=== PATIENT | female | born 1935 | race Hispanic/Latino ===

== ENCOUNTER 2017-07-27 08:14 | Outpatient (CLI) | payer MEDICARE | END 2017-07-27 08:15 | disposition home or self-care (01) | LOC: BICULT 08:14 | PROVIDERS: ATTEND Otolaryngology Plastic Surgery within the Head & Neck | DX: E04.9 Nontoxic goiter, unspecified (principal); E04.2 Nontoxic multinodular goiter | CPT/HCPCS: 76536 ==

== ENCOUNTER 2018-01-27 13:56 | Outpatient (CLI) | payer MEDICARE, OTHER ==
--- NOTE | 2018-01-27 14:48 | ULT ---
VENOUS DOPPLER ULTRASOUND OF THE RIGHT LOWER EXTREMITY: Date: 01/27/18 HISTORY: Pain and edema in the right lower extremity. TECHNIQUE: Rajput scale ultrasound with color flow and spectral Doppler imaging of the deep venous system of the r ight lower extremity performed. FINDINGS: There is good flow, compression, and augmentation noted in the right common femoral, femoral, deep fe moral, popliteal, posterior tibial, and greater saphenous veins. 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 IMPRESSION: No evidence of deep venous thrombosis in the right lower extremity. POS: OFF
--- NOTE | 2018-01-27 14:49 | RAD ---
RIGHT ANKLE 3 VIEWS: Date: 01/27/18 HISTORY: Right ankle pain and edema. FINDINGS/IMPRESSION: The ankle mortise is maintained. No acute fracture, dislocation, or bony destruction is seen. Degener ative changes are present. Vascular calcifications are noted. Calcaneal spurs are noted. POS: OFF
--- NOTE | 2018-01-27 14:56 | RAD ---
THREE VIEWS RIGHT FOOT: History: Pain and edema. FINDINGS: AP, lateral, and oblique views obtained. There are surgical changes seen in the distal aspect of the first right metatarsal. Atherosclerotic calcification is seen. There is an area of radiolucency in the distal aspect of the fifth right metatarsal. This may represe nt an acute fracture. There may also be some old traumatic changes as well as healed fracture in the mid and distal aspect of the fifth right metatarsal. IMPRESSION: Acute distal right fifth metatarsal fracture with proximal old healing changes as well. POS: [facility]
--- NOTE | 2018-01-27 14:58 | RAD ---
RIGHT TIBIA AND FIBULAR FRONTAL AND LATERAL IMAGIN01/27/2018 HISTORY: Pain and edema. COMPARISON: None. FINDINGS: There is an incompletely imaged total knee arthroplasty on the right. There is atherosclerotic calcification posterior to the tibia on the lateral view. There is severe d egenerative change involving the imaged mid foot with prominent joint space narrowing, subchondral sc lerosis, and dorsal osteophyte formation at the talonavicular joint. There is enthesophyte formation at the insertion of the Achilles tendon and the origin of the plantar aponeurosis. No acute fracture or evidence of dislocation is seen. There is a sclerotic lesion within the medullary space of the mid shaft, right tibia, measuring 5-6 c m in craniocaudal dimension. The calcification of this lesion suggests chondroid matrix, on the basi s of a chondroid lesion. If there is pain referable to this region, follow-up MRI is advised. IMPRESSION: Nonspecific chondroid lesion is suspected within the mid shaft of the right tibia. If there are symp toms referable to this region, MRI advised, as low grade chondrosarcoma cannot be excluded. Addition al degenerative changes as detailed above. POS: LISA
== END 2018-01-27 13:57 | disposition home or self-care (01) ==
LOC: ULT 13:56
PROVIDERS: ATTEND Internal Medicine
DX: R60.9 Edema, unspecified (principal); M19.071 Primary osteoarthritis, right ankle and foot; S92.351A Displaced fracture of fifth metatarsal bone, right foot, initial encounter for closed fracture; Z87.81 Personal history of (healed) traumatic fracture; M77.31 Calcaneal spur, right foot; I70.90 Unspecified atherosclerosis

== ENCOUNTER 2018-02-16 11:00 | Inpatient (IN) | payer MEDICARE ==
[2018-02-16 11:58] VITALS: BMI 43.2
[2018-02-17] MEDS ORDERED: CeleCOXIB 100 MG CAP ONE (08:27)
[2018-02-17] MEDS ORDERED: Famotidine/PF 20 mg/2ml Vial ONE (08:27)
[2018-02-17] MEDS ORDERED: Gabapentin 300 MG CAP ONE (08:28)
[2018-02-17 08:58] LABS: INR-International Normal Ratio 1.1; PTT 32.1 SEC (22.9-36.1); Prothrombin Time 13.9 SEC (12.0-14.7)
[2018-02-17] MEDS ORDERED: Midazolam HCl 2 mg/2 ml Vial ONE (09:36)
[2018-02-17] MEDS ORDERED: Lidocaine 1% w/Epinephrine 1:100K 30 ML VIAL ONE (09:38)
[2018-02-17] MEDS ORDERED: CEFAZOLIN/Water 2 GM/20 ML SYRINGE ONE (09:53)
[2018-02-17] MEDS ORDERED: Fentanyl 100 MCG/2 ML VIAL ONE (10:05)
[2018-02-17] MEDS ORDERED: Simethicone Chewable 80 MG TAB PO PRN (11:42)
[2018-02-17] MEDS ORDERED: Acetaminophen/Codeine 30-300mg Tablet PO PRN ×2 (11:42)
[2018-02-17] MEDS ORDERED: Zolpidem Tartrate 5 MG TAB PO PRN (11:42)
[2018-02-17] MEDS ORDERED: Acetaminophen 325 MG TAB PO PRN (11:42)
[2018-02-17] MEDS ORDERED: diphenhydrAMINE 25 MG CAP PO PRN (11:42)
[2018-02-17] MEDS ORDERED: Bisacodyl 10 MG SUPP PR PRN (11:42)
[2018-02-17] MEDS ORDERED: Ondansetron HCl/PF 4 MG/2 ML Vial IVP PRN ×2 (11:42→11:50)
[2018-02-17] MEDS ORDERED: Promethazine HCl 25 MG/ML VIAL IM PRN (11:50)
[2018-02-17] MEDS ORDERED: Promethazine HCl 25 MG/ML VIAL SLOW IVP PRN (11:50)
[2018-02-17] MEDS ORDERED: Ketorolac Tromethamine 30 MG/ML VIAL IVP SCH (12:00)
[2018-02-17] MEDS ORDERED: Promethazine HCl 25 MG/ML VIAL ONE (12:01)
[2018-02-17] MEDS: Sodium Chloride 0.9% 1,000 ML IV SCH (13:40)
--- NOTE | 2018-02-17 15:20 | OP ---
DATE OF OPERATION: 02/17/2018 PREOPERATIVE DIAGNOSES: 1. Complete uterovaginal prolapse. 2. Rectocele. POSTOPERATIVE DIAGNOSES: 1. Complete uterovaginal prolapse. 2. Rectocele. PROCEDURE: Left LeFort colpocleisis and perineorrhaphy. ANESTHESIA: General endotracheal. ATTENDING SURGEON: Verito Gonzalez M.D. CROP PEST CONTROL SPECIALIST: Bennie Nguyen M.D. ESTIMATED BLOOD LOSS: 75 mL. INTRAVENOUS FLUIDS: One liter crystalloid. URINE OUTPUT: 150 mL of clear urine. COMPLICATIONS: None. PATHOLOGY: None. DRAINS: Wise catheter. FINDINGS: Complete procidentia on exam, cervix is slightly ulcerated no evidence of infection, very superficial. No tissue return on EMB attempt and excellent hemostasis. DESCRIPTION OF PROCEDURE: Patient was taken to the operating room where general anesthesia was obtai abi without difficulty. The patient was prepped and draped in sterile fashion in dorsal lithotomy po sition. The cervix was protruding out of the vagina was grasped with Hosea clamps. An EMB was attem pted with Pipelle; however, this did not return to yield any tissue after several passes, therefore, the Pipelle was discarded. Wise catheter was placed in the bladder. The vaginal mucosa was marked out where the incisions would be on the anterior and posterior surfaces. A track was made bilaterall y for the tunneling in the lateral vagina. The marked out rectangular drawings on the vaginal mucosa was then infiltrated with 1% lidocaine with epinephrine on the anterior and posterior surface. The posterior surface was incised with the Bovie on the previously marked areas and Allis clamps were soha lolis on the lateral edges of the vaginal skin. This was then dissected off of the rectovaginal fascia with Metzenbaums as well as a fluffed out Ray-Joyce. The posterior surface was then packed with a Ray -Joyce and the anterior surface was incised on the previously marked areas and the vaginal mucosa was d issected off of the pubocervical fascia with the Metzenbaums and a fluffed out Ray-Joyce and hemostasis was achieved with the Bovie, 2-0 Vicryl were used to create a tunnel on the lateral mucosal strips u sing a horizontal mattress technique bilaterally. The cervix was also tunneled using horizontal marv ress sutures of 2-0 Vicryl. A 2-0 barbed Stratafix suture was used to approximate the anterior and p osterior surfaces of the fascia and starting with most proximal to the cervix and running it down to the distal vaginal edge. Once this was completed, the vaginal mucosal incision was sewn with a 2-0 V icryl in a running locking fashion with excellent hemostasis noted. At that time, the posterior four chette was grasped with two Allises at 4 and 7 o'clock. The area was infiltrated with 1% lidocaine w ith epinephrine. A isabell shaped incision was made over the vaginal mucosa for the perineorrhaphy a nd the Allis clamps were placed on the vaginal mucosa and the mucosa was dissected off of the underly ing supportive tissue. The introitus was then plicated in the midline with U stitches of 2-0 Vicryl and the vaginal mucosal incision was closed with 2-0 Vicryl in a [id number] fashion with excelle nt reapproximation and hemostasis. Irrigation was performed of the vagina and a small packing was pl aced and the vaginal pouch moist Kerlix. The patient tolerated procedure well. Sponge and nee dle counts were correct x2. The patient was taken to recovery room in stable condition. Patient rec eived Ancef 2 grams prior to the procedure.
[2018-02-17] MEDS: Ketorolac Tromethamine 30 MG/ML VIAL IVP SCH (20:44)
[2018-02-17] MEDS: Allopurinol 100 MG TAB PO SCH (20:45)
[2018-02-17] MEDS: Hydroxychloroquine Sulfate 200 MG TAB PO SCH (20:57)
[2018-02-17] MEDS ORDERED: Atenolol 50 MG TAB PO SCH (21:00)
[2018-02-18] MEDS: Ketorolac Tromethamine 30 MG/ML VIAL IVP SCH ×2 (01:50→08:51)
[2018-02-18] MEDS: Sodium Chloride 0.9% 1,000 ML IV SCH (01:50)
[2018-02-18] MEDS ORDERED: Levothyroxine Sodium 25 MCG TAB PO SCH (06:00)
[2018-02-18] MEDS: Apixaban 2.5 MG TAB PO SCH ×2 (08:52)
[2018-02-18] MEDS: Allopurinol 100 MG TAB PO SCH (08:53)
[2018-02-18] MEDS: Hydroxychloroquine Sulfate 200 MG TAB PO SCH (08:53)
[2018-02-18] MEDS ORDERED: Ibuprofen 600 MG TAB PO SCH (09:15)
[2018-02-18] MEDS: Ibuprofen 200 MG TAB PO SCH ×2 (10:02→16:22)
[2018-02-18 10:08] LABS: Hemoglobin 10.1 g/dL (12.0-16.0)
--- NOTE | 2018-02-18 14:06 | PRG ---
DATE OF SERVICE: 02/18/2018 TIME OF VISIT: Approximately 0900. SUBJECTIVE: The patient feels well. She has no pain currently. She has not ambulated or voided at this point and she has eaten breakfast and tolerated that well. She denies any nausea, vomiting. OBJECTIVE: VITAL SIGNS: Blood pressure 137/74, pulse is 56, temperature 97.7, respirations 20, pulse ox is 94%. GENERAL: No acute distress, alert and oriented x3. HEART: Regular rate and rhythm. LUNGS: Clear to auscultation bilaterally. ABDOMEN: Soft, nontender, nondistended. EXTREMITIES: No edema, cyanosis or clubbing. LABORATORY DATA: Hemoglobin is 10.1, hematocrit 29.4, glucose is 114 this morning. ASSESSMENT AND PLAN: This is an 82-year-old status post LeForte colpocleisis and perineorrhaphy post op day #1. Vital signs are stable and the patient is afebrile. She is meeting appropriate postopera tive milestones. She throughout the initial part of the day was able to void 400 mL and she was cath ed for a post-void residual of 300 mL. At this point her discharge is pending her next void and I wi ll perform a postvoid residual on that one to see if she is consistently emptying her bladder adequat elan. She will be continued on oral ibuprofen, Tylenol, as well as p.r.n. Tylenol #3 on discharge. S he was given instructions on lifting restrictions and expectations of light or vaginal spotting. She will follow up with me in 2 weeks postoperative time. She has been restarted on Eliquis for history of pulmonary embolism and her medications are continued.
[2018-02-18 16:25] VITALS: BP 122/58; TEMP 98.2
== END 2018-02-18 18:55 | disposition home or self-care (01) | DRG 748 ==
LOC: SURG A 02-17 08:05 → 3SE 02-17 12:53
PROVIDERS: ADMIT Student in an Organized Health Care Education/Training Program; ATTEND Student in an Organized Health Care Education/Training Program
PROC: 0ULG7ZZ Occlusion of Vagina, Via Natural or Artificial Opening (ICD-10-PCS; principal; 2018-02-17)
PROC: 0WQNXZZ Repair Female Perineum, External Approach (ICD-10-PCS; 2018-02-17)
DX: N81.3 Complete uterovaginal prolapse (principal); Z01.818 Encounter for other preprocedural examination
CPT/HCPCS: 36415; 36416; 80048; 85027; 85610; 85730; 86850; 86900; 86901; 93005; 93010; A4216; J1885; J2001; J2250; J2550; J3010; S0028

== ENCOUNTER 2018-02-16 11:34 | Outpatient (CLI) | payer MEDICARE ==
[2018-02-16 13:18] LABS: Hemoglobin 10.9 g/dL (12.0-16.0); Mean Corpuscular HGB CONC 34.1 g/dL (32.0-36.0); Mean Corpuscular Volume 93.9 fL (78.0-98.0); Mean Platelet Volume 8.4 fL (7.4-10.4); Platelet Count 122 thou/uL (130-400); RBC Distribution Width 15.4 % (11.5-14.5); Red Blood Cell (RBC) Count 3.41 mill/uL (4.20-5.40)
[2018-02-16 13:23] LABS: INR-International Normal Ratio 1.2; Prothrombin Time 14.9 SEC (12.0-14.7)
[2018-02-16 13:39] LABS: Anion Gap 11 mmol/L (10-20); BUN (Urea Nitrogen) 32 mg/dL (9.8-20.1); Calc. Creatinine Clearance 0 mL/min (70-130); Calcium 9.3 mg/dL (7.8-10.44); Carbon Dioxide 26 mmol/L (23-31); Chloride 108 mmol/L (98-107); Estimated GFR-MDRD 61; Glucose 86 mg/dL (83-110); Potassium 4.1 mmol/L (3.5-5.1); Sodium 141 mmol/L (136-145)
--- NOTE | 2018-02-18 16:44 | EKG ---
Test Reason : Blood Pressure : / mmHG Vent. Rate : 064 BPM Atrial Rate : 064 BPM P-R Int : 196 ms QRS Dur : 100 ms QT Int : 434 ms P-R-T Axes : 052 052 041 degrees QTc Int : 447 ms Normal sinus rhythm Normal ECG Confirmed by LEILANI EL ([id number]) on 02/18/2018 4:44:36 PM Referred By: MARIZA Confirmed By:LEILANI EL
== END 2018-02-16 11:35 | disposition home or self-care (01) ==
LOC: LABBT 11:34
PROVIDERS: ATTEND Student in an Organized Health Care Education/Training Program
DX: Z01.818 Encounter for other preprocedural examination (principal); N81.4 Uterovaginal prolapse, unspecified
CPT/HCPCS: 80048; 85027; 85610; 85730; 86850; 86900; 86901; 93005; 93010

== ENCOUNTER 2018-04-21 14:53 | Outpatient (CLI) | payer MEDICARE | END 2018-04-21 14:54 | disposition home or self-care (01) | LOC: BICMAMMO 14:53 | PROVIDERS: ATTEND Internal Medicine | DX: Z12.31 Encounter for screening mammogram for malignant neoplasm of breast (principal); R92.1 Mammographic calcification found on diagnostic imaging of breast | CPT/HCPCS: 77063; 77067 ==

== ENCOUNTER 2018-07-26 13:24 | Emergency (ER) | payer MEDICARE ==
--- NOTE | 2018-07-26 15:11 | ULT ---
LEFT LOWER EXTREMITY VENOUS DUPLEX ULTRASOUND INCLUDING COLOR AND SPECTRAL DOPPLER IMAGING: Date: 07/26/18 HISTORY: Left lower leg and ankle pain and edema. TECHNIQUE: Exam performed from groin to ankle including visualized greater saphenous, common femoral, superficia l femoral, profunda femoral, popliteal, trifurcation, and posterior tibial vein regions. FINDINGS: There is some fairly extensive diffuse edema. Several minimally enlarged inguinal lymph nodes are not ed. There is phasic flow at all levels with normal compressibility and normal augmentation. No intralumin al thrombus. IMPRESSION: Somewhat limited study. No evidence for deep venous thrombosis. Right leg scattered subcutaneous melissa a. Some borderline to minimally enlarged left inguinal lymph nodes. POS: [facility]
[2018-07-26 17:16] LABS: #Basophils 0.1 thou/uL (0.0-0.2); #Eosinphils 0.2 thou/uL (0.0-0.7); #Lymphocytes 1.4 thou/uL (1.20-3.40); #Monocytes 0.5 thou/uL (0.11-0.59); %Basophils 0.9 % (0.0-1.0); %Eosinophils 3.4 % (0.0-10.0); %Lymphocytes 22.6 % (21.0-51.0); %Monocytes 8.6 % (0.0-10.0); %Neutrophils 64.5 % (42.0-75.0); Hemoglobin 8.8 g/dL (12.0-16.0); Mean Corpuscular HGB CONC 32.2 g/dL (32.0-36.0); Mean Corpuscular Hemoglobin 26.3 pg (27.0-31.0); Mean Corpuscular Volume 81.5 fL (78.0-98.0); Mean Platelet Volume 9.4 fL (7.4-10.4); Platelet Count 142 thou/uL (130-400); RBC Distribution Width 15.9 % (11.5-14.5); Red Blood Cell (RBC) Count 3.36 mill/uL (4.20-5.40); White Blood Cell (WBC) Count 6.2 thou/uL (4.8-10.8)
[2018-07-26 17:44] LABS: ALT (SGPT) 16 U/L (8-55); AST (SGOT) 35 U/L (5-34); Albumin 4.2 g/dL (3.4-4.8); Alkaline Phosphatase 78 U/L (40-150); Anion Gap 15 mmol/L (10-20); BUN (Urea Nitrogen) 39 mg/dL (9.8-20.1); Bilirubin, Total 0.6 mg/dL (0.2-1.2); Calc. Creatinine Clearance 0 mL/min (70-130); Calcium 9.8 mg/dL (7.8-10.44); Carbon Dioxide 23 mmol/L (23-31); Chloride 108 mmol/L (98-107); Estimated GFR-MDRD 48; Globulin 3.4 g/dL (2.4-3.5); Glucose 92 mg/dL (83-110); Potassium 4.6 mmol/L (3.5-5.1); Protein, Total 7.6 g/dL (6.0-8.3); Sodium 141 mmol/L (136-145)
== END 2018-07-26 18:47 | disposition home or self-care (01) ==
LOC: ERS 13:24
DX: L03.116 Cellulitis of left lower limb (principal); I10 Essential (primary) hypertension; E11.9 Type 2 diabetes mellitus without complications; E78.00 Pure hypercholesterolemia, unspecified; Z86.73 Personal history of transient ischemic attack (TIA), and cerebral infarction without residual deficits; Z87.891 Personal history of nicotine dependence; Z79.899 Other long term (current) drug therapy; Z79.82 Long term (current) use of aspirin
CPT/HCPCS: 36415; 80053; 83605; 85025; 87040

== ENCOUNTER 2018-08-16 10:23 | Outpatient (CLI) | payer MEDICARE ==
--- NOTE | 2018-08-16 14:07 | ULT ---
THYROID ULTRASOUND: INDICATION: Followup thyroid nodules. COMPARISON: Prior thyroid ultrasound dated 07/27/2017. FINDINGS: The patient's known 1.4 cm TIRADS 3 solid nodule within the thyroid isthmus is not definitely demonst rated on this examination. The 1.8 x 1.4 x 1.7 cm solid heterogeneous nodule involving the superior pole of the right thyroid gl and is slightly larger than on the prior exam where it measured 1.6 x 1.4 x 1.6 cm. The 2.1 x 1.8 x 1.8 cm heterogeneous nodule within the right mid gland is slightly larger where it pr eviously measured 1.8 x 1.7 x 1.4 cm. There is a 2.3 x 2.5 x 2.5 cm heterogeneous solid nodule involving the inferior pole of the right thy roid gland. This is also larger than on the prior study where it measured 1.7 x 1.6 x 2 cm. The solid nodule involving the inferior pole of the left thyroid lobe previously seen measuring 1.6 x 1.2 x 1.7 cm now measures 2.5 x 1.5 x 2.3 cm. Thyroid isthmus measures 0.36 cm. The right thyroid lobe measures 5.9 x 3.3 x 3 cm. The left thyroi d lobe measures 6.0 x 2.7 x 2.3 cm. IMPRESSION: Multinodular goiter. The TIRADS 3 lesion within the right and left thyroid lobes have all increased in size. The lesions within the inferior pole of the right and left thyroid lobes measure up to 2.5 cm in size. Recommend fine needle aspiration sampling of these 2 separate lesions. Recommend ultras ound followup for the additional lesions. POS: LISA
== END 2018-08-16 10:24 | disposition home or self-care (01) ==
LOC: BICULT 10:23
PROVIDERS: ATTEND Otolaryngology Plastic Surgery within the Head & Neck
DX: E04.1 Nontoxic single thyroid nodule (principal); E04.2 Nontoxic multinodular goiter
CPT/HCPCS: 76536

== ENCOUNTER 2018-09-09 14:11 | Outpatient (CLI) | payer MEDICARE ==
--- NOTE | 2018-09-09 15:57 | PRG ---
DATE OF SERVICE: 09/09/2018 HISTORY: Ms. Eduar Barth is a very pleasant 83-year-old, who presents [facility] for evaluation of an ulceration of the left lower leg in the region of the medial malleolus. The patient previously stated that she was recently diagnosed with cellulitis of the left lower extremity. She stated that because of the swelling of her left lower extremity, she was unable to undergo left hip replacement as previously planned. The patient was placed on a course of Keflex 500 mg p.o. q.i.d. for a total of 10 days. The patient was referred to the Wound Center by Dr. Cathie Haynes on 08/11/2018. The patient previously stated that she has utilized compression garments. PHYSICAL EXAMINATION: VITAL SIGNS: Temperature 98.1, pulse 82, blood pressure 149/62. EXTREMITIES: An ulceration of the left ankle in the region of the medial malleolus is present, which measures approximately 4.8 x 3.0 cm. The dimensions of the wound at the time of the patient's last visit were approximately 5.0 x 3.8 cm. No purulent drainage is associated with the wound. No cellulitis of the left lower extremity is appreciated. No maceration of the skin of the periwound is noted. Circumferences of the left lower extremity at the foot, ankle, calf, and knee are 22.5 cm, 24 cm 40 cm, and 47 cm. ASSESSMENT AND PLAN: 1. Chronic venous hypertension with ulcer and inflammation. PolyMem Silver followed by the 3M Coban 2 Layer Compression System will be applied to the ulceration today. The patient will continue to receive dressing changes with the assistance of Home Health. I will see Ms. Barth again in 2 weeks. 2. Lymphedema tarda. As stated above, the patient has been prescribed compression garments in the past. Arrangements have been made for in-home lymphedema therapy with a pneumatic pump. 3. Hypertension. 4. History of pulmonary embolism. 5. Anemia. 6. Hypothyroidism. 7. Coronary artery disease. 8. Degenerative joint disease. 9. Transient ischemic attack in 1994. 10. Gastroesophageal reflux disease. 11. History of right lower extremity deep venous thrombosis x2. 12. Mitral regurgitation. Job ID: [id number]
[2018-09-09] MEDS ORDERED: Sodium Chloride 0.9% 15 ML NEB ONE (20:06)
== END 2018-09-09 14:12 | disposition home or self-care (01) ==
LOC: EDSEX → WCC 14:11
PROVIDERS: ATTEND Family Medicine
DX: I87.332 Chronic venous hypertension (idiopathic) with ulcer and inflammation of left lower extremity (principal); I89.0 Lymphedema, not elsewhere classified; I10 Essential (primary) hypertension; D64.9 Anemia, unspecified; I25.10 Atherosclerotic heart disease of native coronary artery without angina pectoris; M19.90 Unspecified osteoarthritis, unspecified site; K21.9 Gastro-esophageal reflux disease without esophagitis; E03.9 Hypothyroidism, unspecified; I34.0 Nonrheumatic mitral (valve) insufficiency; Z86.711 Personal history of pulmonary embolism; Z86.73 Personal history of transient ischemic attack (TIA), and cerebral infarction without residual deficits
CPT/HCPCS: 29581; A4218

== ENCOUNTER 2018-09-27 15:35 | Outpatient (CLI) | payer MEDICARE ==
--- NOTE | 2018-09-27 15:22 | PRG ---
DATE OF SERVICE: 09/27/2018 HISTORY: Ms. Eduar Barth is a very pleasant 83-year-old, who presents to the [facility] Center for evaluation of an ulceration of the left lower leg in the region of the medial malleolus. The patient previously stated that she was recently diagnosed with cellulitis of the left lower extremity. She stated that because of the swelling of her left lower extremity, she was unable to undergo left hip replacement as previously planned. The patient was placed on a course of Keflex 500 mg p.o. q.i.d. for a total of 10 days. The patient was referred to the Wound Center by Dr. Cathie Haynes on 08/11/2018. The patient previously stated that she has utilized compression garments. OBJECTIVE: VITAL SIGNS: Temperature 98.0, pulse 76, respirations 22, and blood pressure 189/77. EXTREMITIES: An ulceration of the left ankle in the region of the medial malleolus is present, which measures approximately 2.9 x 2.7 cm. The dimensions of the wound at the time of the patient's last visit were approximately 4.8 x 3.0 cm. No purulent drainage is associated with the wound. No cellulitis of the left lower extremity is appreciated. No maceration of the skin of the periwound is noted. Circumferences of the left lower extremity at the ankle, calf, and knee are 29 cm, 41.5 cm, and 44 cm. Circumferences of the right lower extremity at the ankle, calf, and knee are 25 cm, 37.5 cm, and 44.5 cm. Hyperpigmentation of the skin of the right and left lower legs is present secondary to hemosiderin deposition. ASSESSMENT AND PLAN: 1. Chronic venous hypertension with ulcer and inflammation, PolyMem Silver followed by the 3M Coban 2-Layer Compression System will be applied to the ulceration today. The patient will continue to receive dressing changes with the assistance of Home Health. The patient will receive dressing changes two times per week after cleansing and irrigation. I will see Ms. Barth again in 3 weeks. 2. Lymphedema tarda. As stated above, the patient has been prescribed compression garments in the past. Arrangements will continue for in-home lymphedema therapy with a pneumatic pump. 3. Hypertension. 4. History of pulmonary embolism. 5. Anemia. 6. Hypothyroidism. 7. Coronary artery disease. 8. Degenerative joint disease. 9. Transient ischemic attack in 1994. 10. Gastroesophageal reflux disease. 11. History of right lower extremity deep venous thrombosis x2. 12. Mitral regurgitation. Job ID: [id number]
== END 2018-09-27 15:36 | disposition home or self-care (01) ==
LOC: WCC 15:35
PROVIDERS: ATTEND Family Medicine
DX: I87.332 Chronic venous hypertension (idiopathic) with ulcer and inflammation of left lower extremity (principal); L97.929 Non-pressure chronic ulcer of unspecified part of left lower leg with unspecified severity; I89.0 Lymphedema, not elsewhere classified; I10 Essential (primary) hypertension; D64.9 Anemia, unspecified; E03.9 Hypothyroidism, unspecified; I25.10 Atherosclerotic heart disease of native coronary artery without angina pectoris; M19.90 Unspecified osteoarthritis, unspecified site; K21.9 Gastro-esophageal reflux disease without esophagitis; I34.0 Nonrheumatic mitral (valve) insufficiency; Z86.718 Personal history of other venous thrombosis and embolism; Z86.73 Personal history of transient ischemic attack (TIA), and cerebral infarction without residual deficits; Z86.711 Personal history of pulmonary embolism

== ENCOUNTER 2018-10-18 14:13 | Outpatient (CLI) | payer MEDICARE ==
--- NOTE | 2018-10-18 13:18 | PRG ---
DATE OF SERVICE: 10/18/2018 SUBJECTIVE HISTORY: Ms. Eduar Barth is a very pleasant 83-year-old, who presents to the Wound Center for evaluation of an ulceration of the left lower leg in the region of the medial malleolus. Ms. Barth previously stated that she was recently diagnosed with cellulitis of the left lower extremity. She stated that because of the swelling of her left lower extremity, she was unable to undergo left hip replacement as previously planned. The patient was placed on a course of Keflex 500 mg p.o. q.i.d. for a total of 10 days. The patient was referred to the Wound Center by Dr. Cathie Haynes on 08/11/2018. The patient previously stated that she has utilized compression garments. Since the patient's last visit, Ms. Barth has been receiving dressing changes of the 3M Coban 2 Layer Compression System two times per week with the assistance of Home Health. OBJECTIVE: VITAL SIGNS: Temperature 98.4, pulse 83, and blood pressure 164/72. EXTREMITIES: An ulceration of the left ankle in the region of the medial malleolus is present, which measures approximately 3.1 x 1.7 cm. The dimensions of the wound at the time of the patient's last visit were approximately 2.9 x 2.7 cm. No purulent drainage is associated with the wound. No cellulitis of the left lower extremity is appreciated. No maceration of the skin of the periwound is noted. No significant edema of the left foot or lower leg is appreciated on exam today. Hyperpigmentation of the skin of the right and left lower legs is present secondary to hemosiderin deposition. ASSESSMENT AND PLAN: 1. Chronic venous hypertension with ulcer and inflammation. Dressing changes of PolyMem Silver followed by Ángel will be initiated today. These dressing changes are to be performed 3 times per week after cleansing and irrigation with the assistance of Home Health. The patient is to utilize her compression garments in conjunction with the preceding dressing changes. I will see Ms. Barth again in 3 weeks. 2. Lymphedema tarda. Arrangements were previously made for in-home lymphedema therapy with a pneumatic pump. 3. Hypertension. 4. History of pulmonary embolism. 5. Anemia. 6. Hypothyroidism. 7. Coronary artery disease. 8. Degenerative joint disease. 9. Transient ischemic attack in 1994. 10. Gastroesophageal reflux disease. 11. History of right lower extremity deep venous thrombosis x2. 12. Mitral regurgitation. Job ID: [id number]
[2018-10-18] MEDS ORDERED: Sodium Chloride 0.9% 15 ML NEB ONE (19:22)
== END 2018-10-18 14:14 | disposition home or self-care (01) ==
LOC: WCC 14:13
PROVIDERS: ATTEND Family Medicine
DX: I87.332 Chronic venous hypertension (idiopathic) with ulcer and inflammation of left lower extremity (principal); I89.0 Lymphedema, not elsewhere classified; D64.9 Anemia, unspecified; E03.9 Hypothyroidism, unspecified; I25.10 Atherosclerotic heart disease of native coronary artery without angina pectoris; M19.90 Unspecified osteoarthritis, unspecified site; K21.9 Gastro-esophageal reflux disease without esophagitis; I34.0 Nonrheumatic mitral (valve) insufficiency; Z86.711 Personal history of pulmonary embolism; Z86.718 Personal history of other venous thrombosis and embolism; Z86.73 Personal history of transient ischemic attack (TIA), and cerebral infarction without residual deficits
CPT/HCPCS: 29581; A4218

== ENCOUNTER 2018-11-08 10:14 | Day surgery (SDC) | payer MEDICARE ==
[2018-11-08] MEDS ORDERED: Sodium Bicarbonate 2.5 MEQ/5 ML VIAL ONE (12:35)
[2018-11-08] MEDS ORDERED: Lidocaine 1% PF 5 ML VIAL ONE (12:35)
[2018-11-08 13:48] VITALS: BP 145/56; TEMP 97.8
[2018-11-08 13:57] VITALS: BMI 42.0
--- NOTE | 2018-11-08 15:20 | ULT ---
ULTRASOUND-GUIDED THYROID BIOPSY, RIGHT SIDE CLINICAL INDICATION: Thyroid nodule PROCEDURE: Informed consent was obtained. Patient was escorted to procedural suite and placed in supi ne position. Neck was prepped and draped in standard sterile fashion. Thyroid nodule of interest was localized sonographically. Topical anesthesia with buffered 1% lidocaine was performed. Subsequen tly, under real-time sonography, 4 separate FNA sampling procedures were performed with imaging stored for documentation. These samples were provided to the attendant from the pathology department, and deemed adequate for interpretation prior to termination of the procedure. No procedural complications were present, and the patient tolerated the procedure well. Patient was discharged in s table condition. IMPRESSION: Technically successful right thyroid biopsy under ultrasound guidance
--- NOTE | 2018-11-08 15:20 | ULT ---
ULTRASOUND-GUIDED THYROID BIOPSY, LEFT SIDE CLINICAL INDICATION: Thyroid nodule PROCEDURE: Informed consent was obtained. Patient was escorted to procedural suite and placed in supi ne position. Neck was prepped and draped in standard sterile fashion. Thyroid nodule of interest was localized sonographically. Topical anesthesia with buffered 1% lidocaine was performed. Subsequen tly, under real-time sonography, 4 separate FNA sampling procedures were performed with imaging stored for documentation. These samples were provided to the attendant from the pathology department, and deemed adequate for interpretation prior to termination of the procedure. No procedural complications were present, and the patient tolerated the procedure well. Patient was discharged in s table condition. IMPRESSION: Technically successful left thyroid biopsy under ultrasound guidance
== END 2018-11-08 14:25 | disposition home or self-care (01) ==
LOC: ULT 10:14
PROVIDERS: ATTEND Otolaryngology Plastic Surgery within the Head & Neck
PROC: 0GBG3ZX Excision of Left Thyroid Gland Lobe, Percutaneous Approach, Diagnostic (ICD-10-PCS; principal; 2018-11-08)
PROC: 0GBH3ZX Excision of Right Thyroid Gland Lobe, Percutaneous Approach, Diagnostic (ICD-10-PCS; 2018-11-08)
DX: E04.2 Nontoxic multinodular goiter (principal); K21.9 Gastro-esophageal reflux disease without esophagitis; M19.90 Unspecified osteoarthritis, unspecified site; I25.10 Atherosclerotic heart disease of native coronary artery without angina pectoris; I10 Essential (primary) hypertension; Z86.711 Personal history of pulmonary embolism; Z86.718 Personal history of other venous thrombosis and embolism; Z98.890 Other specified postprocedural states; Z91.018 Allergy to other foods
CPT/HCPCS: 60100; 76942; 88173; J2001

== ENCOUNTER 2018-11-08 10:23 | Outpatient (CLI) | payer MEDICARE ==
--- NOTE | 2018-11-08 11:56 | PRG ---
DATE OF SERVICE: 11/08/2018 HISTORY: Ms. Eduar Barth is a very pleasant 83-year-old, who presents to the [facility] Center for evaluation of an ulceration of the left lower leg in the region of the medial malleolus. Previously, Ms. Barth stated that she was recently diagnosed with cellulitis of the left lower extremity. She stated that because of the swelling of her left lower extremity, she was unable to undergo left hip replacement as previously planned. The patient was placed on a course of Keflex 500 mg p.o. q.i.d. for a total of 10 days. The patient was referred to the Wound Center by Dr. Cathie Haynes on 08/11/2018. The patient previously stated that she has utilized compression garments in the past. The patient received dressing changes of the 3M Coban 2 Layer Compression System two times per week with the assistance of Home Health, but since her last visit, has been receiving dressing changes of PolyMem Silver followed by Allevyn 3 times per week after cleansing and irrigation again with the assistance of Home Health. PHYSICAL EXAMINATION: VITAL SIGNS: Temperature 98.0, pulse 91, respirations 19, and blood pressure 128/75. EXTREMITIES: An ulceration of the left ankle in the region of the medial malleolus measures approximately 2.3 x 1.1 cm. The dimensions of the wound at the time of the patient's last visit were approximately 3.1 x 1.7 cm. No purulent drainage is associated with the wound. No cellulitis of the left lower extremity is appreciated. No maceration of the skin of the periwound is noted. No significant edema of the left foot or lower leg is appreciated on exam today. ASSESSMENT AND PLAN: 1. Chronic venous hypertension with ulcer and inflammation. Dressing changes of PolyMem Silver followed by Allevyn will be continued three times per week after cleansing and irrigation with the assistance of Home Health. The patient is to continue to utilize her compression garments in conjunction with the preceding dressing changes. Today, the patient has been given a prescription for compression garments, knee-high, open or closed toe to yield a compression of 20 to 30 mmHg. I will see Ms. Barth again in 3 weeks. 2. Lymphedema tarda. Arrangements were previously made for in-home lymphedema therapy with a pneumatic pump. 3. Hypertension. 4. History of pulmonary embolism. 5. Anemia. 6. Hypothyroidism. 7. Coronary artery disease. 8. Degenerative joint disease. 9. Transient ischemic attack in 1994. 10. Gastroesophageal reflux disease. 11. History of right lower extremity deep venous thrombosis x2. 12. Mitral regurgitation. Job ID: [id number]
[2018-11-08] MEDS ORDERED: Sodium Chloride 0.9% 15 ML NEB ONE (15:00)
== END 2018-11-08 10:24 | disposition home or self-care (01) ==
LOC: WCC 10:23
PROVIDERS: ATTEND Family Medicine
DX: I87.332 Chronic venous hypertension (idiopathic) with ulcer and inflammation of left lower extremity (principal); L97.929 Non-pressure chronic ulcer of unspecified part of left lower leg with unspecified severity; I89.0 Lymphedema, not elsewhere classified; I10 Essential (primary) hypertension; D64.9 Anemia, unspecified; I25.10 Atherosclerotic heart disease of native coronary artery without angina pectoris; M19.90 Unspecified osteoarthritis, unspecified site; K21.9 Gastro-esophageal reflux disease without esophagitis; G45.9 Transient cerebral ischemic attack, unspecified; E03.9 Hypothyroidism, unspecified; I34.0 Nonrheumatic mitral (valve) insufficiency; Z86.718 Personal history of other venous thrombosis and embolism; Z86.711 Personal history of pulmonary embolism
CPT/HCPCS: 97602; A4218

== ENCOUNTER 2018-11-29 15:00 | Outpatient (CLI) | payer MEDICARE ==
--- NOTE | 2018-11-29 14:20 | PRG ---
DATE OF SERVICE: 11/29/2018 HISTORY: Ms. Eduar Barth is a very pleasant 83-year-old, who presents to the [facility] for evaluation of an ulceration of the left lower leg in the region of the medial malleolus. The patient previously stated that she was recently diagnosed with cellulitis of the left lower extremity. She stated that because of the swelling of her left lower extremity, she was unable to undergo left hip replacement as previously planned. The patient was placed on a course of Keflex 500 mg p.o. q.i.d. for a total of 10 days. The patient was referred to the Wound Center by Dr. Cathie Haynes on 08/11/2018. The patient has been prescribed compression garments in the past. The patient received dressing changes of the 3M Coban 2 Layer Compression System 2 times per week with the assistance of Home Health. More recently, the patient has been receiving dressing changes of PolyMem Silver followed by Allevyn 3 times per week after cleansing and irrigation again with the assistance of Home Health. PHYSICAL EXAMINATION: VITAL SIGNS: Temperature 98, pulse 72, respirations 18, and blood pressure 149/67. EXTREMITIES: The ulceration of the left ankle in the region of the medial malleolus has almost healed completely. No purulent drainage is associated with the wound. No cellulitis of the left lower extremity is appreciated. No maceration of the skin of the periwound is noted. No significant edema of the left foot or lower leg is appreciated on exam today. ASSESSMENT AND PLAN: 1. Chronic venous hypertension with ulcer and inflammation. Dressing changes of PolyMem Silver followed by Allevyn will be continued 3 times per week after cleansing and irrigation with the assistance of Home Health. The patient is to continue to utilize her compression garments in conjunction with the preceding dressing changes. At the time of the patient's last visit, Ms. Barth was given a prescription for compression garments, knee-high, open or closed toe to yield a compression of 20 to 30 mmHg. I will see Ms. Barth again on 12/30/2018. 2. Lymphedema tarda. The patient states she is utilizing her pneumatic pump for in-home lymphedema therapy. 3. Hypertension. 4. History of pulmonary embolism. 5. Anemia. 6. Hypothyroidism. 7. Coronary artery disease. 8. Degenerative joint disease. 9. Transient ischemic attack in 1994. 10. Gastroesophageal reflux disease. 11. History of right lower extremity deep venous thrombosis x2. 12. Mitral regurgitation. Job ID: [id number]
[2018-11-29] MEDS ORDERED: Sodium Chloride 0.9% 15 ML NEB ONE (18:00)
== END 2018-11-29 15:01 | disposition home or self-care (01) ==
LOC: WCC 15:00
PROVIDERS: ATTEND Family Medicine
DX: I87.332 Chronic venous hypertension (idiopathic) with ulcer and inflammation of left lower extremity (principal); L97.329 Non-pressure chronic ulcer of left ankle with unspecified severity; I89.0 Lymphedema, not elsewhere classified; I10 Essential (primary) hypertension; D64.9 Anemia, unspecified; E03.9 Hypothyroidism, unspecified; I25.10 Atherosclerotic heart disease of native coronary artery without angina pectoris; M19.90 Unspecified osteoarthritis, unspecified site; K21.9 Gastro-esophageal reflux disease without esophagitis; I34.0 Nonrheumatic mitral (valve) insufficiency; Z86.73 Personal history of transient ischemic attack (TIA), and cerebral infarction without residual deficits
CPT/HCPCS: A4218

== ENCOUNTER 2018-12-30 10:35 | Outpatient (CLI) | payer MEDICARE ==
--- NOTE | 2018-12-30 13:30 | PRG ---
DATE OF SERVICE: 12/30/2018 HISTORY: Ms. Eduar Barth is a very pleasant 83-year-old, who presents to the Wound Center for evaluation of an ulceration of the left lower leg in the region of the medial malleolus. The patient also has an ulceration in the region of the right lower leg in the region of the medial malleolus. The patient has been prescribed compression garments in the past. The patient received dressing changes of the 3M Coban 2 Layer Compression System 2 times per week with the assistance of Home Health. More recently, the patient has been receiving dressing changes of PolyMem Silver followed by Allevyn 3 times per week after cleansing and irrigation again with the assistance of Home Health. The patient reports that the secondary dressing is often dislodged. PHYSICAL EXAMINATION: VITAL SIGNS: Temperature 98.4, pulse 78, respirations 24, blood pressure 125/55. EXTREMITIES: The ulceration of the left ankle in the region of the medial malleolus measures approximately 5.0 x 7.5 cm. The ulceration of the right ankle in the region of the medial malleolus measures approximately 5.0 x 10.0 cm. No purulent drainage is associated with either wound, no cellulitis of the right or left lower extremity is appreciated. No maceration of the skin of the periwound of either wound is noted. Edema of the right and left feet and lower legs is present on exam today. ASSESSMENT AND PLAN: 1. Chronic venous hypertension with ulcers and inflammation. Dressing changes of Aquacel Extra followed by bordered gauze will be initiated today. These dressing changes are to be performed 3 times per week after cleansing and irrigation with the assistance of Home Health. The patient is to continue to utilize her compression garments in conjunction with the preceding dressing changes. I will see Ms. Barth again in 3 weeks. 2. Lymphedema tarda. Arrangements will continue for treatment with Flexitouch Plus. The patient has utilized Entre with limited results. 3. Hypertension. 4. History of pulmonary embolism. 5. Anemia. 6. Hypothyroidism. 7. Coronary artery disease. 8. Degenerative joint disease. 9. Transient ischemic attack in 1994. 10. Gastroesophageal reflux disease. 11. History of right lower extremity deep venous thrombosis x2. 12. Mitral regurgitation. Job ID: [id number]
[2018-12-30] MEDS ORDERED: Sodium Chloride 0.9% 15 ML NEB ONE (15:00)
== END 2018-12-30 10:36 | disposition home or self-care (01) ==
LOC: WCC 10:35
PROVIDERS: ATTEND Family Medicine
DX: I87.333 Chronic venous hypertension (idiopathic) with ulcer and inflammation of bilateral lower extremity (principal); I89.0 Lymphedema, not elsewhere classified; I10 Essential (primary) hypertension; E03.9 Hypothyroidism, unspecified; D64.9 Anemia, unspecified; I25.10 Atherosclerotic heart disease of native coronary artery without angina pectoris; M19.90 Unspecified osteoarthritis, unspecified site; K21.9 Gastro-esophageal reflux disease without esophagitis; I34.0 Nonrheumatic mitral (valve) insufficiency; Z86.73 Personal history of transient ischemic attack (TIA), and cerebral infarction without residual deficits
CPT/HCPCS: 97602; A4218

== ENCOUNTER 2019-01-13 11:47 | Outpatient (CLI) | payer MEDICARE ==
[~2019-01-13 11:47] MED LIST: Sodium Chloride 0.9% 15 ML NEB ONE
--- NOTE | 2019-01-13 12:51 | PRG ---
DATE OF SERVICE: 01/13/2019 HISTORY: Ms. Eduar Barth is a very pleasant 83-year-old, who presents to the Wound Center for evaluation of an ulceration of the left lower leg in the region of the medial malleolus. The patient also has an ulceration of the right lower leg in the region of the medial malleolus. The patient has been prescribed compression garments in the past. The patient received dressing changes of the 3M Coban 2 Layer Compression System 2 times per week with the assistance of Home Health. More recently, the patient has been receiving dressing changes of Aquacel 3 times per week after cleansing and irrigation with the assistance of Home Health. The patient states that she has received a pneumatic pump, which she has been utilizing. PHYSICAL EXAMINATION: VITAL SIGNS: Temperature 98.0, pulse 77, respirations 22, and blood pressure 100/62. EXTREMITIES: The ulceration of the left ankle in the region of the medial malleolus measures approximately 12.0 x 5.0 cm. The ulceration of the right ankle in the region of the medial malleolus measures approximately 10.0 x 3.0 cm. No purulent drainage is associated with either wound. No cellulitis of the right or left lower extremity is appreciated. No maceration of the skin of the periwound of either wound is noted. No significant edema of the right or left foot or lower legs is present on exam today. ASSESSMENT AND PLAN: 1. Chronic venous hypertension with ulcers and inflammation. Dressing changes of Aquacel, followed by an ABD and Jazmine will be initiated today. These dressing changes are to be performed 3 times per week after cleansing and irrigation with the assistance of Home Health. In lieu of compression garments, the patient is to utilize her lymphedema pump each evening for 45 minutes for each lower extremity. I will see Ms. Barth again in 3 weeks. 2. Lymphedema tarda. As stated above, the patient has received and is utilizing her lymphedema pump. 3. Hypertension. 4. History of pulmonary embolism. 5. Anemia. 6. Hypothyroidism. 7. Coronary artery disease. 8. Degenerative joint disease. 9. Transient ischemic attack in 1994. 10. Gastroesophageal reflux disease. 11. History of right lower extremity deep venous thrombosis x2. 12. Mitral regurgitation. Job ID: [id number]
== END 2019-01-13 11:48 | disposition home or self-care (01) ==
LOC: WCC 11:47
PROVIDERS: ATTEND Family Medicine
DX: I87.333 Chronic venous hypertension (idiopathic) with ulcer and inflammation of bilateral lower extremity (principal); L97.319 Non-pressure chronic ulcer of right ankle with unspecified severity; L97.329 Non-pressure chronic ulcer of left ankle with unspecified severity; I89.0 Lymphedema, not elsewhere classified; I10 Essential (primary) hypertension; Z86.711 Personal history of pulmonary embolism; D64.9 Anemia, unspecified; E03.9 Hypothyroidism, unspecified; I25.10 Atherosclerotic heart disease of native coronary artery without angina pectoris; M19.90 Unspecified osteoarthritis, unspecified site; Z86.73 Personal history of transient ischemic attack (TIA), and cerebral infarction without residual deficits; K21.9 Gastro-esophageal reflux disease without esophagitis; Z86.718 Personal history of other venous thrombosis and embolism; I34.0 Nonrheumatic mitral (valve) insufficiency
CPT/HCPCS: 97602; A4218

== ENCOUNTER 2019-02-02 16:00 | Outpatient (CLI) | payer MEDICARE ==
--- NOTE | 2019-02-02 16:57 | PRG ---
DATE OF SERVICE: 02/02/2019 HISTORY: Ms. Eduar Barth is a very pleasant 83-year-old, who presents to the wound center for evaluation of an ulceration of the left lower leg in the region of the medial malleolus. The patient also has an ulceration of the right lower leg in the region of the medial malleolus. The patient has been prescribed compression garments in the past. The patient received dressing changes of the 3M Coban 2 Layer Compression System 2 times per week with the assistance of home health. Recently, the patient received dressing changes of Aquacel for her right and left lower leg wounds. At the time of the patient's last visit, dressing changes of Xeroform gauze followed by ABDs, Webril, and the 3M Coban 2 Layer Compression System were initiated. The patient has received the preceding dressing changes 2 times per week after cleansing and irrigation with the assistance of home health. PHYSICAL EXAMINATION: VITAL SIGNS: Temperature 98.0, pulse 68, respirations 16, and blood pressure 127/57. EXTREMITIES: The ulcerations of the right and left ankles in the region of the medial malleoli have significantly improved in their appearance. No purulent drainage is associated with either wound. No cellulitis of the right or left lower extremity is appreciated. No maceration of the skin of the periwound of either wound is noted. Less edema of the right and left feet and lower legs is present on today's exam than at the time of the patient's last visit. ASSESSMENT AND PLAN: 1. Chronic venous hypertension with ulcers and inflammation. The patient will receive dressing changes of Xeroform gauze followed by ABDs, Webril, and the 3M Coban 2 Layer Compression System on a weekly basis after cleansing and irrigation here in the wound center. Home health will be discontinued. Arrangements will be made for the home delivery of wraparound compression. I will see Ms. Barth again in 2 weeks. The patient was previously given a prescription for Augmentin 875/125 #21 p.o. b.i.d. x10 days. The patient has also been given a prescription for Synalar ointment 0.025% to be applied to the areas of stasis dermatitis at the time of dressing changes. Cultures obtained at the time of the patient's last visit revealed the growth of Staphylococcus aureus sensitive to Augmentin. Cultures also revealed the growth of Streptococcus agalactiae group B. The patient understands and is in agreement with the preceding treatment plan. 2. Lymphedema tarda. The patient was previously instructed to discontinue the use of her lymphedema pump while she is receiving dressing changes of the 3M Coban 2 Layer Compression System. 3. Hypertension. 4. History of pulmonary embolism. 5. Anemia. 6. Hypothyroidism. 7. Coronary artery disease. 8. Degenerative joint disease. 9. Transient ischemic attack in 1994. 10. Gastroesophageal reflux disease. 11. History of right lower extremity deep venous thrombosis x2. 12. Mitral regurgitation. Job ID: [id number]
== END 2019-02-02 16:01 | disposition home or self-care (01) ==
LOC: WCC 16:00
PROVIDERS: ATTEND Family Medicine
DX: I87.333 Chronic venous hypertension (idiopathic) with ulcer and inflammation of bilateral lower extremity (principal); L97.329 Non-pressure chronic ulcer of left ankle with unspecified severity; L97.319 Non-pressure chronic ulcer of right ankle with unspecified severity; I10 Essential (primary) hypertension; E03.9 Hypothyroidism, unspecified; I25.10 Atherosclerotic heart disease of native coronary artery without angina pectoris; M19.90 Unspecified osteoarthritis, unspecified site; K21.9 Gastro-esophageal reflux disease without esophagitis; I34.0 Nonrheumatic mitral (valve) insufficiency; D64.9 Anemia, unspecified; Z86.73 Personal history of transient ischemic attack (TIA), and cerebral infarction without residual deficits
CPT/HCPCS: A4218

== ENCOUNTER 2019-02-07 11:22 | Outpatient (CLI) | payer MEDICARE | END 2019-02-07 11:23 | disposition home or self-care (01) | LOC: WCC 11:22 | PROVIDERS: ATTEND Family Medicine | DX: I87.332 Chronic venous hypertension (idiopathic) with ulcer and inflammation of left lower extremity (principal); L97.929 Non-pressure chronic ulcer of unspecified part of left lower leg with unspecified severity | CPT/HCPCS: 29581 ==

== ENCOUNTER 2019-02-18 13:26 | Outpatient (CLI) | payer MEDICARE | END 2019-02-18 13:27 | disposition home or self-care (01) | LOC: WCC 13:26 | PROVIDERS: ATTEND Family Medicine | DX: I87.332 Chronic venous hypertension (idiopathic) with ulcer and inflammation of left lower extremity (principal) | CPT/HCPCS: 29581 ==

== ENCOUNTER 2019-02-23 11:58 | Outpatient (CLI) | payer MEDICARE ==
--- NOTE | 2019-02-23 14:33 | PRG ---
DATE OF SERVICE: 02/23/2019 HISTORY: Ms. Eduar Barth is a very pleasant 83-year-old, who presents to the Wound Center for evaluation of an ulceration of the left lower leg in the region of the medial malleolus. The patient also has an ulceration of the right lower leg in the region of the medial malleolus. The patient has been prescribed compression garments in the past. The patient received dressing changes of the 3M Coban 2 Layer Compression System 2 times per week with the assistance of Home Health. Subsequently, the patient received dressing changes of Aquacel for her right and left lower leg wounds. More recently, the patient has been receiving dressing changes of Xeroform gauze, ABDs, Webril, and the 3M Coban 2 Layer Compression System on a weekly basis here in the Wound Center. The patient has received wraparound compression via home delivery. PHYSICAL EXAMINATION: VITAL SIGNS: Temperature 98.4, pulse 77, respirations 19, and blood pressure 136/58. EXTREMITIES: The ulceration of the right lower leg in the region of the medial malleolus has healed completely and remains healed. The ulceration of the left lower leg in the region of the medial malleolus has decreased in its dimensions. No purulent drainage is associated with the wound. No cellulitis of the right or left lower extremities appreciated. No maceration of the skin of the periwound of the left lower leg wound is noted. No significant edema of the right or left foot or lower legs is present on exam today. ASSESSMENT AND PLAN: 1. Chronic venous hypertension with ulcers and inflammation. As stated above, the ulceration of the right lower leg in the region of the medial malleolus has healed completely and remains healed. The dimensions of the ulceration of the left lower leg in the region of the medial malleolus have decreased since the patient's visit on 02/18/2019 for a dressing change. Dressing changes of Xeroform gauze, followed by an ABD, Webril, and the 3M Coban 2 Layer Compression System will be continued on a weekly basis here in the Wound Center for the left lower leg wound. The patient's wraparound compression will be applied to the right foot and lower leg. The patient is to bring the topical steroid previously prescribed with her to her next clinic appointment in 1 week. The patient states she understands and is in agreement with the preceding treatment plan. 2. Lymphedema tarda. The patient has been told that she may resume utilizing her lymphedema pump for treatment of right lower extremity lymphedema. 3. Hypertension. 4. History of pulmonary embolism. 5. Anemia. 6. Hypothyroidism. 7. Coronary artery disease. 8. Degenerative joint disease. 9. Transient ischemic attack in 1994. 10. Gastroesophageal reflux disease. 11. History of right lower extremity deep venous thrombosis x2. 12. Mitral regurgitation. Job ID: [id number]
== END 2019-02-23 11:59 | disposition home or self-care (01) ==
LOC: WCC 11:58
PROVIDERS: ATTEND Family Medicine
DX: I87.333 Chronic venous hypertension (idiopathic) with ulcer and inflammation of bilateral lower extremity (principal); I89.0 Lymphedema, not elsewhere classified; I25.10 Atherosclerotic heart disease of native coronary artery without angina pectoris; K21.9 Gastro-esophageal reflux disease without esophagitis; I34.0 Nonrheumatic mitral (valve) insufficiency; M19.90 Unspecified osteoarthritis, unspecified site; E03.9 Hypothyroidism, unspecified; D64.9 Anemia, unspecified; I10 Essential (primary) hypertension; Z86.73 Personal history of transient ischemic attack (TIA), and cerebral infarction without residual deficits; Z86.711 Personal history of pulmonary embolism
CPT/HCPCS: 29581

== ENCOUNTER 2019-02-28 11:37 | Outpatient (CLI) | payer MEDICARE ==
--- NOTE | 2019-02-28 12:38 | PRG ---
DATE OF SERVICE: 02/28/2019 HISTORY: Ms. Eduar Barth is a very pleasant 83-year-old, who presents to the Wound Center for evaluation of an ulceration of the left lower leg in the region of the medial malleolus. The patient has been prescribed compression garments in the past. The patient received dressing changes of the 3M Coban 2 Layer Compression System 2 times per week with the assistance of Home Health. Subsequently, the patient received dressing changes of Aquacel for her right and left lower leg wounds. More recently, the patient has been receiving dressing changes of Xeroform gauze, ABDs, Webril, and the 3M Coban 2 Layer Compression System on a weekly basis here in the Wound Center. The patient is utilizing wraparound compression for her right foot and lower leg. PHYSICAL EXAMINATION: VITAL SIGNS: Temperature 98.8, pulse 82, respirations 24, and blood pressure 133/61. EXTREMITIES: An ulceration of the left lower leg in the region of the medial malleolus is present and measures approximately 4.5 x 4.0 cm. No purulent drainage is associated with the wound. No cellulitis of the left lower extremity is appreciated. No maceration of the skin of the periwound of the left lower leg wound is noted. [id number]-ehtwonsp edema of the left foot and lower leg is present on exam today. ASSESSMENT AND PLAN: 1. Chronic venous hypertension with ulcer and inflammation. Dressing changes of Xeroform gauze, followed by an ABD, Webril, and the 3M Coban 2 Layer Compression System will be continued on a weekly basis here in the Wound Center for the left lower leg wound. The patient's wraparound compression will be applied to the right foot and lower leg. Synalar ointment 0.025% has been applied to the stasis dermatitis of the left foot and lower leg. I will see Ms. Barth again in 1 week. 2. Lymphedema tarda. The patient has been reminded that she may utilize her lymphedema pump for treatment of right lower extremity lymphedema. 3. Hypertension. 4. History of pulmonary embolism. 5. Anemia. 6. Hypothyroidism. 7. Coronary artery disease. 8. Degenerative joint disease. 9. Transient ischemic attack in 1994. 10. Gastroesophageal reflux disease. 11. History of right lower extremity deep venous thrombosis x2. 12. Mitral regurgitation. Job ID: [id number]
== END 2019-02-28 11:38 | disposition home or self-care (01) ==
LOC: WCC 11:37
PROVIDERS: ATTEND Family Medicine
DX: I87.332 Chronic venous hypertension (idiopathic) with ulcer and inflammation of left lower extremity (principal); L97.929 Non-pressure chronic ulcer of unspecified part of left lower leg with unspecified severity; I89.0 Lymphedema, not elsewhere classified; I10 Essential (primary) hypertension; D64.9 Anemia, unspecified; E03.9 Hypothyroidism, unspecified; I25.10 Atherosclerotic heart disease of native coronary artery without angina pectoris; M19.90 Unspecified osteoarthritis, unspecified site; K21.9 Gastro-esophageal reflux disease without esophagitis; I34.0 Nonrheumatic mitral (valve) insufficiency; Z86.73 Personal history of transient ischemic attack (TIA), and cerebral infarction without residual deficits; Z86.711 Personal history of pulmonary embolism; Z86.718 Personal history of other venous thrombosis and embolism
CPT/HCPCS: 29581

== ENCOUNTER 2019-03-07 11:12 | Outpatient (CLI) | payer MEDICARE ==
[2019-03-07] MEDS ORDERED: Sodium Chloride 0.9% 15 ML NEB ONE (15:00)
--- NOTE | 2019-03-08 07:42 | PRG ---
DATE OF SERVICE: 03/07/2019 HISTORY: Ms. Eduar Barth is a very pleasant 84-year-old who presents to the Wound Center for evaluation of an ulceration of the left lower leg in the region of the medial malleolus. The patient has been prescribed compression garments in the past. The patient received dressing changes of the 3M Coban 2 Layer Compression System 2 times per week with the assistance of Home Health. Subsequently, the patient received dressing changes of Aquacel for her right and left lower leg wounds. More recently, the patient has been receiving dressing changes of Xeroform gauze, ABDs, Webril, and the 3M Coban 2 Layer Compression System on a weekly basis here in the Wound Center. The patient is utilizing wraparound compression for her right foot and lower leg. Today, the patient presents with slippage of the 3M Coban 2 Layer Compression System. The patient states that she pulled down her compression wrap because of the presence of a new ulceration of the left posterior calf. PHYSICAL EXAMINATION: VITAL SIGNS: Temperature 98.5, pulse 80, respirations 18, and blood pressure 129/58. EXTREMITIES: An ulceration of the left lower leg in the region of the medial malleolus is present and measures approximately 5.0 x 5.5 cm. An ulceration over the left posterior calf is present, which measures approximately 1.4 x 1.0 cm. No purulent drainage is associated with either wound. No cellulitis of the left lower extremity is appreciated. No maceration of the skin of the periwound of either wound is noted. Significant edema of the left lower leg is present on exam today. ASSESSMENT AND PLAN: 1. Chronic venous hypertension with ulcer and inflammation. As stated above, the patient has a new ulceration over the left posterior calf. Dressing changes of Xeroform followed by Mepilex Border for the left posterior calf ulceration will be initiated today. These dressing changes are to be performed 3 times per week after cleansing and irrigation with the assistance of Home Health. Xeroform gauze followed by an ABD and Kerlix will be utilized for the left medial ankle ulceration. These dressing changes are also to be performed 3 times per week after cleansing and irrigation with the assistance of Home Health. The patient is to utilize wraparound compression in conjunction with the preceding dressing changes. The patient is to continue wraparound compression for the right foot and lower leg. I will see Ms. Barth again in 2 weeks. 2. Lymphedema tarda. The patient has been reminded that she should utilize her lymphedema pump for treatment of right and left lower extremity lymphedema. 3. Degenerative joint disease. The patient has previously undergone bilateral total knee arthroplasty in 1995 followed by a right knee revision in 2001 and left total knee arthroplasty in 2008. The patient has also undergone right total hip arthroplasty in 2013. Ms. Barth is also scheduled to undergo left total hip arthroplasty for severe osteoarthritis of the left hip. A seat lift chair has been recommended to improve her mobility allowing her to stand and sit with less difficulty. 4. History of pulmonary embolism. 5. Anemia. 6. Hypothyroidism. 7. Coronary artery disease. 8. Hypertension. 9. Transient ischemic attack in 1994. 10. Gastroesophageal reflux disease. 11. History of right lower extremity deep venous thrombosis x2. 12. Mitral regurgitation. Job ID: [id number] MTDD
== END 2019-03-07 11:13 | disposition home or self-care (01) ==
LOC: WCC 11:12
PROVIDERS: ATTEND Family Medicine
DX: I87.332 Chronic venous hypertension (idiopathic) with ulcer and inflammation of left lower extremity (principal); L97.929 Non-pressure chronic ulcer of unspecified part of left lower leg with unspecified severity; I89.0 Lymphedema, not elsewhere classified; M19.90 Unspecified osteoarthritis, unspecified site; D64.9 Anemia, unspecified; E03.9 Hypothyroidism, unspecified; I25.10 Atherosclerotic heart disease of native coronary artery without angina pectoris; I34.0 Nonrheumatic mitral (valve) insufficiency; K21.9 Gastro-esophageal reflux disease without esophagitis; Z86.73 Personal history of transient ischemic attack (TIA), and cerebral infarction without residual deficits; Z86.711 Personal history of pulmonary embolism
CPT/HCPCS: A4218

== ENCOUNTER 2019-03-21 14:19 | Outpatient (CLI) | payer MEDICARE ==
--- NOTE | 2019-03-21 11:35 | PRG ---
DATE OF SERVICE: 03/21/2019 SUBJECTIVE: Ms. Eduar Barth is a very pleasant 84-year-old, who presents to the Wound Center for evaluation of an ulceration of the left lower leg in the region of the medial malleolus. The patient has been prescribed compression garments in the past. The patient received dressing changes of the 3M Coban 2 Layer Compression System 2 times per week with the assistance of Home Health. Subsequently, the patient received dressing changes of Aquacel for her right and left lower leg wounds. More recently, the patient received dressing changes of Xeroform gauze, ABDs, Webril, and the 3M Coban 2 Layer Compression System on a weekly basis in the wound center. Since the patient's last visit, Ms. Barth has been receiving dressing changes of Xeroform gauze, followed by an ABD and Kerlix for her left medial ankle ulceration 3 times per week after cleansing and irrigation with the assistance of Home Health. For an ulceration of the left posterior calf, the patient has been receiving dressing changes of Xeroform, followed by Mepilex Border also 3 times per week after cleansing and irrigation with the assistance of Home Health. The patient has been receiving the preceding dressing changes in conjunction with the use of wraparound compression. The patient states she continues to utilize wraparound compression for her right foot and lower leg. In addition, the patient states that she is utilizing her pneumatic pump consistently. OBJECTIVE: VITAL SIGNS: Temperature 98.2, pulse 75, respirations 20, blood pressure 156/60. EXTREMITIES: The ulceration of the left lower leg in the region of the medial malleolus has healed completely. An ulceration over the left posterior calf is present, which measures approximately 0.7 x 0.5 cm. The dimensions of the wound at the time of the patient's last visit were approximately 1.4 x 1.0 cm. No purulent drainage is associated with the wound. No cellulitis of the left lower extremity is appreciated. No maceration of the skin of the periwound is noted. Less edema of the left lower leg is present on exam today than at the time of the patient's last visit. ASSESSMENT AND PLAN: 1. Chronic venous hypertension with ulcer and inflammation. As stated above, the ulceration of the left lower leg in the region of the medial malleolus has healed completely. For the left posterior calf ulceration, dressing changes of Xeroform, followed by Mepilex Border will be continued 3 times per week after cleansing and irrigation with the assistance of Home Health. Xeroform gauze, followed by an ABD and Kerlix will be continued for the newly healed left medial ankle ulceration. These dressing changes are also to be performed 3 times per week after cleansing and irrigation with the assistance of Home Health. The patient is to continue to utilize wraparound compression in conjunction with the preceding dressing changes. Wraparound compression for the right foot and lower leg will also be continued. I will see Ms. Barth again in 2 weeks. 2. Lymphedema tarda. The patient has been reminded to continue to utilize her lymphedema pump for treatment of right and left lower extremity lymphedema. 3. Degenerative joint disease. The patient states that she has received a seat lift chair to improve her mobility, allowing her to stand and sit with less difficulty. 4. History of pulmonary embolism. 5. Anemia. 6. Hypothyroidism. 7. Coronary artery disease. 8. Hypertension. 9. Transient ischemic attack in 1994. 10. Gastroesophageal reflux disease. 11. History of right lower extremity deep venous thrombosis x2. 12. Mitral regurgitation. Job ID: [id number]
== END 2019-03-21 14:20 | disposition home or self-care (01) ==
LOC: WCC 14:19
PROVIDERS: ATTEND Family Medicine
DX: I87.332 Chronic venous hypertension (idiopathic) with ulcer and inflammation of left lower extremity (principal); L97.229 Non-pressure chronic ulcer of left calf with unspecified severity; I89.0 Lymphedema, not elsewhere classified; M19.90 Unspecified osteoarthritis, unspecified site; D64.9 Anemia, unspecified; E03.9 Hypothyroidism, unspecified; I25.10 Atherosclerotic heart disease of native coronary artery without angina pectoris; I10 Essential (primary) hypertension; Z86.73 Personal history of transient ischemic attack (TIA), and cerebral infarction without residual deficits; K21.9 Gastro-esophageal reflux disease without esophagitis; I34.0 Nonrheumatic mitral (valve) insufficiency
CPT/HCPCS: 29581

== ENCOUNTER 2019-03-28 15:53 | Inpatient (IN) | payer MEDICARE ==
[2019-03-28 16:20] LABS: #Eosinphils 0.1 thou/uL (0.0-0.7); #Lymphocytes 1.6 thou/uL (1.20-3.40); #Monocytes 0.4 thou/uL (0.11-0.59); %Basophils 0.7 % (0.0-1.0); %Lymphocytes 30.6 % (21.0-51.0); %Monocytes 8.5 % (0.0-10.0); %Neutrophils 58.2 % (42.0-75.0); Hemoglobin 5.4 g/dL (12.0-16.0); Mean Corpuscular HGB CONC 30.1 g/dL (32.0-36.0); Mean Corpuscular Hemoglobin 18.9 pg (27.0-31.0); Mean Corpuscular Volume 62.9 fL (78.0-98.0); Mean Platelet Volume 5.5 fL (7.4-10.4); Platelet Count 193 thou/uL (130-400); RBC Distribution Width 19.2 % (11.5-14.5); Red Blood Cell (RBC) Count 2.87 mill/uL (4.20-5.40); White Blood Cell (WBC) Count 5.1 thou/uL (4.8-10.8)
[2019-03-28 16:38] LABS: Anisocytosis MODERATE=16-30 cells (100X) (0-5/hpf); Hypochromia MODERATE=16-30 cells (100X) (0-5/hpf); MDiff Complete? YES; Microcytosis MODERATE=15-30 cells (100X) (0-5/hpf); Ovalocytes SLIGHT = 2-5 cells (100X) (0-1/hpf); Platelet Morphology Comment Appears Adequate; Poikilocytosis SLIGHT = 6-15 cells (100X) (0-5/hpf); Polychromasia MODERATE = 3-4 cells (100X) (0-2/hpf); Reflex for Review?? YES; Schistocytes SLIGHT = 2-5 cells (100X) (0-1/hpf); Spherocytes SLIGHT = 1-5 cells (100X) (None Seen); Target Cells SLIGHT = 2-5 cells (100X) (0-1/hpf)
--- NOTE | 2019-03-28 16:39 | RAD ---
Chest one view HISTORY: Dyspnea. COMPARISON: 08/14/2013. FINDINGS: Cardiac silhouette is magnified and enlarged. Pulmonary vasculature upper limits of normal and accentuated by shallow inspiration. Mediastinum is midline with aortic calcification. Elevation right hemidiaphragm is similar in appearance to previous exam. library monitor leads overlie the ches t. IMPRESSION: Borderline pulmonary vascular congestion. Mild cardiomegaly. Atherosclerosis.
[2019-03-28 16:41] LABS: ALT (SGPT) 27 U/L (8-55); AST (SGOT) 32 U/L (5-34); Alkaline Phosphatase 77 U/L (40-110); Anion Gap 12 mmol/L (10-20); BUN (Urea Nitrogen) 37 mg/dL (9.8-20.1); Bilirubin, Total 0.7 mg/dL (0.2-1.2); Calc. Creatinine Clearance 0 mL/min (70-130); Calcium 9.1 mg/dL (7.8-10.44); Carbon Dioxide 20 mmol/L (23-31); Chloride 113 mmol/L (98-107); Estimated GFR-MDRD 49; Globulin 2.9 g/dL (2.4-3.5); Glucose 106 mg/dL (83-110); Potassium 4.1 mmol/L (3.5-5.1); Protein, Total 6.9 g/dL (6.0-8.3); Sodium 141 mmol/L (136-145)
[2019-03-28] MEDS ORDERED: Senokot S 8.6-50 MG TAB PO PRN (20:54)
[2019-03-28] MEDS ORDERED: Acetaminophen 325 MG TAB PO PRN (20:54)
[2019-03-28] MEDS ORDERED: Acetaminophen 650 MG Suppository PR PRN (20:54)
[2019-03-28] MEDS ORDERED: Sodium Chloride 0.9% 1,000 ML IV SCH (21:00)
[2019-03-28 21:26] LABS: Iron 15 ug/dL (50-170); Iron Binding Capacity, Total 451 mcg/dL (265-497)
[2019-03-28] MEDS ORDERED: Colchicine 0.6 MG TAB PO PRN (22:07)
[2019-03-28] MEDS ORDERED: diphenhydrAMINE 50 MG/ML VIAL IVP PRN (22:09)
[2019-03-28] MEDS: Famotidine 20 MG TAB PO SCH (22:47)
[2019-03-29] MEDS ORDERED: Sodium Chloride 0.9% (PF) 10 ML VIAL FS PRN (00:08)
[2019-03-29] MEDS ORDERED: HumaLOG 300 UNITS/3 ML VIAL SC PRN ×2 (02:07)
[2019-03-29] MEDS ORDERED: Dextrose 5% in Water 1,000 ML IV PRN (02:07)
[2019-03-29] MEDS ORDERED: Dextrose 50% Abboject 50 ML SYRINGE SLOW IVP PRN (02:07)
--- NOTE | 2019-03-29 03:00 | HP ---
PRIMARY CARE PHYSICIAN: Dr. Haynes. CHIEF COMPLAINT: Shortness of breath. HISTORY OF PRESENT ILLNESS: Ms. Barth is an 84-year-old female, who came to the emergency room with complaints of shortness of breath. The patient has history of lymphedema and healing left extremity venous stasis ulcers. She has a history of DVT and PE and is on Eliquis. Also has a past medical history of coronary artery disease, hypertension, and anemia who presents with shortness of breath. Symptoms started 2-3 days ago with increased exertional shortness of breath, increased nonproductive cough. Reports intermittent wheezing. Denies any fever, chills, chest pain, palpitations, known sick contacts. Reports that she gets dyspneic with mild exertion. She went to her PCP today, was noted to be very pale and then was sent to the emergency room for further evaluation. She denies any acute blood loss, hematuria, melena, hematochezia. Reports a 10 pack year smoking history, but quit close to 40 years ago. Denies any COPD or asthma. INITIAL LABORATORY DATA: Lab work in the emergency room pertinent for a hemoglobin of 5.4, hematocrit is 18.1, platelets are 193, white blood cells are 5.1. Sodium 141, potassium 4.1, chloride 113, carbon dioxide 20, BUN 37, creatinine 1.27. Kidney function appears at baseline. It was noted the last time her hemoglobin was checked on our records was in July of 2018. Her hemoglobin at that time was 8.8. Prior to that March of 2018, it was checked and it was 10.1. The patient also had a chest x-ray, which showed borderline pulmonary vascular congestion and mild cardiomegaly. The patient admitted to the telemetry unit for symptomatic anemia and dyspnea. REVIEW OF SYSTEMS: The patient reports fatigue. Reports weakness. Reports some rhinorrhea. Reports dyspnea on exertion. Reports edema. Reports exercise intolerance. Reports mild cough, shortness of breath. Reports intermittent wheezing. Reports arthralgias, joint stiffness. Reports healing stasis ulcers on left lower extremity. All other systems are reviewed and are negative unless mentioned in the HPI. PAST MEDICAL HISTORY: Hypertension, type 2 diabetes, reports high cholesterol, reports TIA in 1994. PAST SURGICAL HISTORY: Bilateral knee replacement, left hip replacement, uterine lift, 2 stents. ALLERGIES: NONE. CURRENT MEDICATIONS: 1. Allopurinol 100 mg p.o. daily. 2. Eliquis 2.5 mg p.o. b.i.d. 3. Atenolol 75 mg p.o. at bedtime. 4. Colchicine 0.6 mg p.o. b.i.d. 5. Prilosec 40 mg p.o. daily. 6. Ferrous sulfate 325 mg p.o. b.i.d. 7. Lasix 20 mg p.o. daily. 8. Plaquenil 200 mg p.o. b.i.d. 9. Levothyroxine 25 mcg p.o. daily. 10. Benicar 20 mg p.o. daily. 11. Restasis 0.4 mL one drop each eye b.i.d. 12. Crestor 20 mg p.o. daily. 13. Coenzyme Q 200 mg p.o. daily. 14. Aspirin 81 mg p.o. daily. PHYSICAL EXAMINATION: VITAL SIGNS: Blood pressure 158/71, pulse is 70, respirations 18, temperature is 98.3, pain is 4, pO2 sats are 96% on room air. CONSTITUTIONAL: The patient appears nontoxic. She is alert and oriented to person, place and time. HEAD: Atraumatic and normocephalic. Eyes, pupils are equally round and reactive to light. Conjunctiva is pale. ENT; mucous membranes are dry. Mouth exam is normal. NECK: Normal range of motion. Trachea is midline. RESPIRATORY: Chest breath sounds are clear. Chest movement is symmetrical. CARDIOVASCULAR: Regular heart rate and rhythm. Heart sounds are normal. ABDOMEN: Nontender. Bowel sounds are heard. EXTREMITIES: Upper extremity normal range of motion, normal motor strength. Radial pulses are normal in lower extremity. Motor strength is normal. Normal range of motion. Healing stasis ulcers noted on the left lower extremity. NEUROLOGIC: The patient is oriented to person, place, and time. Speech is normal no focal, motor or sensory deficits. SKIN: Warm, dry, normal in color, stasis ulcers, left lower leg. PSYCHIATRIC: Normal affect. IMAGING: EKG shows normal sinus rhythm, beats per minute 83. ST segments and T-waves are normal, axis is normal. ASSESSMENT/PLAN: 1. Symptomatic anemia. Two units of packed red blood cells were ordered in the ER. We will transfuse these. We will recheck serial H and H once the 2 units have been infused. We will hold the Eliquis and aspirin for now as well as iron. Keep the patient n.p.o. after midnight. 2. We will ask GI to consult, iron studies have been ordered. 3. Protonix 40 mg q.12 has been ordered. 4. Cardiomegaly with borderline vascular congestion is noted on the x-ray with a BNP of 740. The patient takes Lasix 20 mg p.o. daily. We will change that to IV. 5. History of hypertension. We will restart home medications, we will trend. 6. Hyperlipidemia. We will restart home medications. 7. Chronic kidney disease, appears stable. We will trend. 8. The patient is on gastrointestinal prophylaxis. We will hold Eliquis for now. 9. Hospital course is dependent on clinical findings. Job ID: [id number]
[2019-03-29 05:20] LABS: #Eosinphils 0.1 thou/uL (0.0-0.7); #Lymphocytes 1.2 thou/uL (1.20-3.40); #Monocytes 0.3 thou/uL (0.11-0.59); #Neutrophils 2.7 thou/uL (1.40-6.50); %Basophils 0.7 % (0.0-1.0); %Eosinophils 2.8 % (0.0-10.0); %Lymphocytes 27.6 % (21.0-51.0); %Monocytes 7.5 % (0.0-10.0); %Neutrophils 61.5 % (42.0-75.0); Hemoglobin 6.7 g/dL (12.0-16.0); Mean Corpuscular HGB CONC 31.8 g/dL (32.0-36.0); Mean Corpuscular Hemoglobin 21.5 pg (27.0-31.0); Mean Corpuscular Volume 67.8 fL (78.0-98.0); Mean Platelet Volume 5.6 fL (7.4-10.4); Platelet Count 165 thou/uL (130-400); Red Blood Cell (RBC) Count 3.11 mill/uL (4.20-5.40); White Blood Cell (WBC) Count 4.4 thou/uL (4.8-10.8)
[2019-03-29] MEDS: Levothyroxine Sodium 25 MCG TAB PO SCH (05:42)
[2019-03-29 05:45] LABS: ALT (SGPT) 24 U/L (8-55); AST (SGOT) 27 U/L (5-34); Albumin 3.7 g/dL (3.4-4.8); Alkaline Phosphatase 60 U/L (40-110); Anion Gap 9 mmol/L (10-20); BUN (Urea Nitrogen) 32 mg/dL (9.8-20.1); Calc. Creatinine Clearance 75 mL/min (70-130); Calcium 9.1 mg/dL (7.8-10.44); Carbon Dioxide 23 mmol/L (23-31); Chloride 114 mmol/L (98-107); Estimated GFR-MDRD 61; Globulin 2.6 g/dL (2.4-3.5); Glucose 78 mg/dL (83-110); Potassium 3.9 mmol/L (3.5-5.1); Protein, Total 6.3 g/dL (6.0-8.3); Sodium 142 mmol/L (136-145)
[2019-03-29] MEDS ORDERED: Furosemide 20 MG/2 ML VIAL SLOW IVP SCH (09:00)
[2019-03-29] MEDS: Pantoprazole 40 MG VIAL IVP SCH ×2 (09:10→22:41)
[2019-03-29] MEDS: Famotidine 20 MG TAB PO SCH ×2 (09:16→22:41)
[2019-03-29 10:37] LABS: Hemoglobin 7.5 g/dL (12.0-16.0)
[2019-03-29] MEDS: cycloSPORINE 0.05% Ophthalmic Droperette EA EYE SCH (10:57)
[2019-03-29] MEDS: Rosuvastatin 20 MG TAB PO SCH (10:58)
[2019-03-29] MEDS: Losartan 25 MG TAB PO SCH (10:59)
[2019-03-29] MEDS: Ubidecarenone 50 MG CAP PO SCH (10:59)
[2019-03-29] MEDS: Hydroxychloroquine Sulfate 200 MG TAB PO SCH ×2 (10:59→22:41)
[2019-03-29] MEDS: Allopurinol 100 MG TAB PO SCH (10:59)
--- NOTE | 2019-03-29 13:03 | CON ---
DATE OF CONSULTATION: 03/29/2019 CHIEF COMPLAINT: Shortness of breath. HISTORY OF PRESENT ILLNESS: Ms. Barth is an 84-year-old woman, who was been on Eliquis for a history of DVT and PE few years ago. She has a prior history of anemia with a gradual decrease since the last year. She had been on iron for a while, but not for the last couple of months. Over the last several days, she has had progressive worsening of shortness of breath on exertion. She has had no nausea, vomiting, diarrhea, or constipation. No visible GI bleeding. No black stools or red stools. No abdominal pain. No chest pain. In the emergency room, she was found to have severe anemia and she received a couple of units of blood transfusion. She reports her last colonoscopy with Dr. Broussard was around 10 years ago. Her has been treated recently for colon cancer, which only required surgical therapy. PAST MEDICAL HISTORY: Hypertension, hyperlipidemia, diabetes mellitus type 2, TIA, DVT with pulmonary embolism, chronic lymphedema of the lower extremities, coronary artery disease, status post coronary stents, most recently 4-5 years ago per her report. She is followed with Dr. Matthews. PAST SURGICAL HISTORY: Bilateral knee replacement, left hip replacement, uterine prolapse surgery, and coronary stents. FAMILY HISTORY: Negative for GI malignancy. SOCIAL HISTORY: No alcohol, tobacco, or drugs. ALLERGIES: NO KNOWN DRUG ALLERGIES. MEDICATIONS: Prior to admission, 1. Aspirin and Eliquis. Her last dose of Eliquis was yesterday morning. 2. Allopurinol. 3. Atenolol. 4. Colchicine. 5. Prilosec 40 mg daily. 6. Lasix. 7. Plaquenil. 8. Levothyroxine. 9. Benicar. 10. Restasis. 11. Crestor. 12. Coenzyme Q10. REVIEW OF SYSTEMS: Negative x10 systems reviewed, except as stated in the history of present illness. PHYSICAL EXAMINATION: VITAL SIGNS: Pulse 64, blood pressure 173/85, temperature 97.9. GENERAL: She is in no acute distress. Alert and oriented x3. HEENT: Eyes have no scleral icterus. Oropharynx is clear without lesions. No cervical or supraclavicular lymphadenopathy. LUNGS: Clear to auscultation bilaterally. HEART: Regular rate and rhythm without murmur. ABDOMEN: Soft, nontender, and nondistended. Bowel sounds are present. EXTREMITIES: 2+ lower extremity edema. RECTAL: Reveals light brown stool in the rectal vault. LABORATORY DATA: Creatinine 1.05, bilirubin 1.0, AST 27, ALT 24, alkaline phosphatase 60. Iron 15, TIBC 451, ferritin 13.4. BNP 740. White blood cell count 4.4, hemoglobin 6.7 this morning, which was after 2 units transfusion. Prior to transfusion, her hemoglobin was 5.4. IMPRESSION: 1. Iron deficiency anemia. There has been no overt bleeding. She required 2 units of transfusion. Her hemoglobin improved from 5.4 to 7.5. 2. History of deep vein thrombosis and pulmonary embolism on chronic anticoagulation. Her last dose of Eliquis was yesterday morning. RECOMMENDATIONS: 1. Clear liquid diet today. 2. I would give 1 more unit transfusion today in anticipation of anesthesia for tomorrow. 3. Bowel prep today for EGD and colonoscopy tomorrow. 4. Anticoagulation is held. Job ID: [id number]
[2019-03-29] MEDS ORDERED: GoLYTELY 4,000 ml Bottle PO SCH (15:00)
--- NOTE | 2019-03-29 17:17 | PDOC.HOSPP ---
- Subjective Encounter Date: 03/29/19 Encounter Time: 14:00 Subjective: Ms. Barth was seen today in follow-up of dyspnea. She is breathing better today. She was able to ambulate some in the room. - Objective Vital Signs & Weight: Vital Signs (12 hours) Temp Pulse Pulse Resp BP BP Pulse Ox 03/29/19 15:54 98.0 F 67 20 146/70 H 99 03/29/19 14:11 98.1 F 63 20 152/66 H 96 03/29/19 13:56 97.7 F 67 20 153/66 H 97 03/29/19 13:55 97.7 F 67 20 153/66 H 97 03/29/19 12:48 65 16 92 L 03/29/19 11:12 97.8 F 63 20 171/68 H 97 03/29/19 07:43 64 16 91 L 03/29/19 07:29 97.9 F 67 20 173/85 H 96 Weight Admit Weight 254 lb 11.2 oz Weight 254 lb 11.2 oz I&O: 03/28/19 03/29/19 03/30/19 06:59 06:59 06:59 Intake Total 22 0 Output Total 900 Balance -878 0 Result Diagrams: 03/29/19 10:13 03/29/19 04:47 Additional Labs: Accuchecks 03/29/19 10:29 POC Glucose 81 Hospitalist ROS - Medication Medications: Active Medications Generic Name Dose Route Start Last Admin Trade Name Freq PRN Reason Stop Dose Admin Albuterol/Ipratropium 3 ml 03/29/19 01:00 03/29/19 12:48 Duoneb NEB 3 ml [id number] TAINA Administration Allopurinol 100 mg 03/29/19 09:00 03/29/19 10:59 Zyloprim PO 100 mg DAILY TAINA Administration Coenzyme Q10 200 mg 03/29/19 09:00 03/29/19 10:59 Coenzyme Q10 PO 200 mg DAILY TAINA Administration Cyclosporine 0 ml 03/29/19 09:00 03/29/19 10:57 Restasis EA EYE 0.4 ml BID TAINA Administration Famotidine 20 mg 03/28/19 21:00 03/29/19 09:16 Pepcid PO Not Given BID TAINA Furosemide 20 mg 03/29/19 09:00 03/29/19 09:10 Lasix SLOW IVP 20 mg DAILY TAINA Administration Hydroxychloroquine Sulfate 200 mg 03/29/19 09:00 03/29/19 10:59 Plaquenil PO 200 mg BID TAINA Administration Levothyroxine Sodium 25 mcg 03/29/19 06:00 03/29/19 05:42 Synthroid PO Not Given 0600 TAINA Losartan Potassium 50 mg 03/29/19 09:00 03/29/19 10:59 Cozaar PO 50 mg DAILY TAINA Administration Pantoprazole Sodium 40 mg 03/29/19 09:00 03/29/19 09:10 Protonix IVP 40 mg Q12HR TAINA Administration Polyethylene Glycol/Electrolytes 4,000 ml 03/29/19 15:00 03/29/19 15:50 Golytely PO 03/29/19 21:00 4,000 ml 1500 TAINA Administration Rosuvastatin Calcium 20 mg 03/29/19 09:00 03/29/19 10:58 Crestor PO 20 mg DAILY TAINA Administration - Exam Eye: PERRL, anicteric sclera Heart: RRR, no murmur, no gallops, no rubs, normal peripheral pulses Respiratory: CTAB, no wheezes, no rales, no ronchi, normal chest expansion, no tachypnea, normal percussion Gastrointestinal: soft, non-tender, non-distended, normal bowel sounds, no palpable masses, no hepatomegaly, no splenomegaly Extremities: no cyanosis, no clubbing, 1+ LE edema (no warmth or erythema) Psychiatric: normal affect, normal behavior, A&O x 3 Hosp A/P (1) Acute respiratory failure Code(s): J96.00 - ACUTE RESPIRATORY FAILURE, UNSP W HYPOXIA OR HYPERCAPNIA Status: Acute (2) Symptomatic anemia Code(s): D64.9 - ANEMIA, UNSPECIFIED Status: Acute (3) History of - pulmonary embolus Code(s): Z86.711 - PERSONAL HISTORY OF PULMONARY EMBOLISM Status: Acute (4) Hypothyroidism Code(s): E03.9 - HYPOTHYROIDISM, UNSPECIFIED Status: Chronic - Plan * Acute respiratory failure- likely from severe anemia * Anemia- due to iron deficiency aas well as chronic disease * She has improved after transfusion * Plan is for EGD and Colonoscopy * History of PE, and chronic anticoagulation- Eliquis is on hold.
[2019-03-29] MEDS ORDERED: FLU VACC TS2019-20(65YR UP)/PF 180 MCG/0.5 ML SYRINGE IM ONE (21:00)
[2019-03-29] MEDS: Atenolol 50 MG TAB PO SCH (22:40)
[2019-03-30] MEDS: cycloSPORINE 0.05% Ophthalmic Droperette EA EYE SCH ×3 (00:48→21:35)
[2019-03-30] MEDS: Levothyroxine Sodium 25 MCG TAB PO SCH (06:03)
[2019-03-30] MEDS: Allopurinol 100 MG TAB PO SCH (08:36)
[2019-03-30] MEDS: Ubidecarenone 50 MG CAP PO SCH (08:36)
[2019-03-30] MEDS: Rosuvastatin 20 MG TAB PO SCH (08:36)
[2019-03-30] MEDS: Hydroxychloroquine Sulfate 200 MG TAB PO SCH ×2 (08:36→23:05)
[2019-03-30] MEDS: Pantoprazole 40 MG VIAL IVP SCH (08:37)
[2019-03-30] MEDS: Losartan 25 MG TAB PO SCH (08:37)
[2019-03-30] MEDS: Famotidine 20 MG TAB PO SCH ×2 (08:37→21:31)
[2019-03-30 10:33] LABS: #Eosinphils 0.2 thou/uL (0.0-0.7); #Lymphocytes 0.9 thou/uL (1.20-3.40); #Monocytes 0.3 thou/uL (0.11-0.59); #Neutrophils 3.2 thou/uL (1.40-6.50); %Basophils 0.4 % (0.0-1.0); %Eosinophils 3.2 % (0.0-10.0); %Lymphocytes 20.3 % (21.0-51.0); %Monocytes 7.1 % (0.0-10.0); Hemoglobin 8.1 g/dL (12.0-16.0); Mean Corpuscular HGB CONC 31.8 g/dL (32.0-36.0); Mean Corpuscular Hemoglobin 22.1 pg (27.0-31.0); Mean Corpuscular Volume 69.3 fL (78.0-98.0); Mean Platelet Volume 5.7 fL (7.4-10.4); Platelet Count 167 thou/uL (130-400); RBC Distribution Width 22.8 % (11.5-14.5); Red Blood Cell (RBC) Count 3.67 mill/uL (4.20-5.40); White Blood Cell (WBC) Count 4.7 thou/uL (4.8-10.8)
[2019-03-30] MEDS ORDERED: Ketorolac Tromethamine 30 MG/ML VIAL IVP PRN (12:50)
[2019-03-30] MEDS ORDERED: Ondansetron HCl/PF 4 MG/2 ML Vial IVP PRN (12:50)
[2019-03-30] MEDS ORDERED: Promethazine HCl 25 MG/ML VIAL SLOW IVP PRN (12:50)
[2019-03-30] MEDS ORDERED: Meperidine HCl/PF 25 MG/ML VIAL SLOW IVP PRN (12:50)
[2019-03-30] MEDS ORDERED: Promethazine HCl 25 MG/ML VIAL IM PRN (12:50)
[2019-03-30] MEDS ORDERED: Sodium Chloride For Inhalation 0.9% 3 ML NEB ONE (12:52)
--- NOTE | 2019-03-30 15:04 | OP ---
DATE OF PROCEDURE: 03/30/2019 PROCEDURES PERFORMED: 1. Esophagogastroduodenoscopy. 2. Colonoscopy. PREMEDICATION: Given by Anesthesiology Department. PREPROCEDURE DIAGNOSES: 1. Severe anemia. 2. Iron deficiency. POSTPROCEDURE DIAGNOSES: 1. Normal upper endoscopy. 2. Normal colonoscopy except for diverticulosis coli. DESCRIPTION OF PROCEDURE: Written consents were obtained prior to procedure. After adequate sedation, forward-viewing endoscope was advanced down the stomach under direct vision to the third portion of duodenum. The duodenum and the bulb appeared normal. The pylorus was patent. Patchy antral erythema was noted. The body, fundus, and cardia all appeared normal. Retroflexion did not show any abnormality. The GE junction was located at 40 cm. The lower, mid, and upper esophagus appeared normal. The patient was then repositioned for colonoscopy. Digital exam was performed was normal. The colonoscope was introduced in the rectum, advanced to the cecum. The quality of the bowel prep was good. The appendiceal orifice and ileocecal valve were visualized, appeared normal. The cecum, ascending colon, hepatic flexure, transverse colon, splenic flexure, and descending colon appeared normal. Scattered diverticula were noted in the sigmoid. The rectal vault appeared normal including retroflexion. The instrument was then further removed. The patient tolerated the procedure well. ASSESSMENT: 1. Normal upper endoscopy. 2. Diverticulosis coli, otherwise normal colon exam. 3. No apparent source of gastrointestinal blood loss based on these exams. RECOMMENDATION: 1. The patient can be discharged home from GI standpoint. 2. Outpatient Hematology evaluation. 3. We will schedule the outpatient small bowel capsule endoscopy. Job ID: [id number]
--- NOTE | 2019-03-30 17:46 | PDOC.HOSPP ---
- Subjective Encounter Date: 03/30/19 Encounter Time: 17:44 Subjective: Ms. Barth was seen today in follow-up of severe anemia. She does not have any complaints. She is concerned that the cause of her drop in hemoglobin has not been elucidated. - Objective Vital Signs & Weight: Vital Signs (12 hours) Temp Pulse Pulse Pulse Resp BP BP 03/30/19 15:16 97.9 F 71 18 03/30/19 13:34 97.9 F 69 20 03/30/19 09:47 71 70 153/67 H 180/70 H 03/30/19 07:50 97.6 F 70 20 03/30/19 06:59 71 16 BP BP Pulse Ox 03/30/19 15:16 165/67 H 99 03/30/19 13:34 171/70 H 100 03/30/19 09:47 03/30/19 07:50 169/74 H 97 03/30/19 06:59 95 Weight Admit Weight 254 lb 11.2 oz Weight 253 lb 3.2 oz I&O: 03/29/19 03/30/19 03/31/19 06:59 06:59 06:59 Intake Total 22 3875 Output Total 900 1100 Balance -878 2775 Result Diagrams: 03/30/19 10:17 03/29/19 04:47 Additional Labs: Accuchecks 03/30/19 03/30/19 03/29/19 10:31 05:25 20:19 POC Glucose 101 95 110 Hospitalist ROS - Medication Medications: Active Medications Generic Name Dose Route Start Last Admin Trade Name Freq PRN Reason Stop Dose Admin Albuterol/Ipratropium 3 ml 03/29/19 01:00 03/30/19 12:26 Duoneb NEB Not Given [id number] TAINA Allopurinol 100 mg 03/29/19 09:00 03/30/19 08:36 Zyloprim PO 100 mg DAILY TAINA Administration Atenolol 75 mg 03/29/19 21:00 03/29/19 22:40 Tenormin PO 75 mg HS TAINA Administration Coenzyme Q10 200 mg 03/29/19 09:00 03/30/19 08:36 Coenzyme Q10 PO 200 mg DAILY TAINA Administration Cyclosporine 0 ml 03/29/19 09:00 03/30/19 08:37 Restasis EA EYE 0.4 ml BID TAINA Administration Famotidine 20 mg 03/28/19 21:00 03/30/19 08:37 Pepcid PO 20 mg BID TAINA Administration Hydroxychloroquine Sulfate 200 mg 03/29/19 09:00 03/30/19 08:36 Plaquenil PO 200 mg BID TAINA Administration Levothyroxine Sodium 25 mcg 03/29/19 06:00 03/30/19 06:03 Synthroid PO 25 mcg 0600 TAINA Administration Losartan Potassium 50 mg 03/29/19 09:00 03/30/19 08:37 Cozaar PO 50 mg DAILY TAINA Administration Rosuvastatin Calcium 20 mg 03/29/19 09:00 03/30/19 08:36 Crestor PO 20 mg DAILY TAINA Administration - Exam Eye: PERRL, anicteric sclera Heart: RRR, no murmur, no gallops, no rubs, normal peripheral pulses Respiratory: CTAB, no wheezes, no rales, no ronchi, normal chest expansion, no tachypnea, normal percussion Gastrointestinal: soft, non-tender, non-distended, normal bowel sounds, no hepatomegaly, no splenomegaly Extremities: no cyanosis, no clubbing, no edema Skin: normal turgor Hosp A/P (1) Acute respiratory failure Code(s): J96.00 - ACUTE RESPIRATORY FAILURE, UNSP W HYPOXIA OR HYPERCAPNIA Status: Acute (2) Symptomatic anemia Code(s): D64.9 - ANEMIA, UNSPECIFIED Status: Acute (3) History of - pulmonary embolus Code(s): Z86.711 - PERSONAL HISTORY OF PULMONARY EMBOLISM Status: Inactive (4) Hypothyroidism Code(s): E03.9 - HYPOTHYROIDISM, UNSPECIFIED Status: Chronic - Plan * Acute respiratory failure- likely from severe anemia * Anemia- EGD and Colonoscopy were essentially negative * Will consult hematology in the AM * History of PE, and chronic anticoagulation- Eliquis is on hold. * Re-check the H&H in the AM
[2019-03-30] MEDS: Atenolol 50 MG TAB PO SCH (21:27)
[2019-03-31] MEDS: Levothyroxine Sodium 25 MCG TAB PO SCH (05:34)
[2019-03-31 06:15] LABS: Hemoglobin 7.7 g/dL (12.0-16.0); Platelet Count 164 thou/uL (130-400)
[2019-03-31] MEDS ORDERED: Iron Sucrose Complex 200 MG in Sodium Chloride 0.9% 250 ML 250 ML IVPB SCH (09:00)
[2019-03-31] MEDS: Allopurinol 100 MG TAB PO SCH (09:20)
[2019-03-31] MEDS: Losartan 25 MG TAB PO SCH (09:20)
[2019-03-31] MEDS: Hydroxychloroquine Sulfate 200 MG TAB PO SCH ×2 (09:21→20:23)
[2019-03-31] MEDS: Ubidecarenone 50 MG CAP PO SCH (09:21)
[2019-03-31] MEDS: Rosuvastatin 20 MG TAB PO SCH (09:21)
[2019-03-31] MEDS: Famotidine 20 MG TAB PO SCH ×2 (09:21→20:23)
[2019-03-31] MEDS: cycloSPORINE 0.05% Ophthalmic Droperette EA EYE SCH ×2 (09:32→20:17)
--- NOTE | 2019-03-31 12:36 | CON ---
DATE OF CONSULTATION: REASON FOR CONSULT: Anemia. HISTORY OF PRESENT ILLNESS: Ms. Barth is a pleasant 84-year-old female with past medical history of iron deficiency anemia secondary to chronic blood loss from anticoagulation, who presented to the emergency room with shortness of breath. She was noted to have a hemoglobin of 5.4 on arrival. Iron studies revealed an iron saturation of 3, serum iron of 15, and TIBC of 451. Her ferritin level was 13.4. She was transfused 3 units of packed RBCs and underwent endoscopy studies, which showed no apparent source of GI bleeding. The patient has been on anticoagulation for several years secondary to PE and DVT. When she was last seen by our clinic in 2016, she was on Coumadin. She now is on Eliquis. She was on oral iron in the past, but has not taken any for several years. She currently denies any complaints. PAST MEDICAL HISTORY: 1. DVT, PE. 2. Hypertension. 3. High cholesterol. 4. Diabetes. 5. TIA. 6. Hypothyroidism. 7. GERD. 8. Rheumatoid arthritis. PAST SURGICAL HISTORY: Hip replacement, knee replacement, and stent placement. ALLERGIES: NO KNOWN DRUG ALLERGIES. HOME MEDICATIONS: 1. Allopurinol. 2. Eliquis. 3. Tenormin. 4. Colcrys. 5. Nexium. 6. Lasix. 7. Plaquenil. 8. Synthroid. 9. Benicar. 10. Restasis. 11. Crestor. 12. CoQ10. 13. Aspirin. FAMILY HISTORY: Brother with nasal cancer. recently diagnosed with colon cancer. SOCIAL HISTORY: . Has 3 children. Lives with her spouse. No alcohol, tobacco, or illicit drug use. REVIEW OF SYSTEMS: Ten-point review of systems is positive for lower extremity swelling and shortness of breath. Otherwise, negative. PHYSICAL EXAMINATION: VITAL SIGNS: Temperature is 99.0, pulse is 66, respiratory rate 16, blood pressure is 150/67, and she is 93% on room air. GENERAL: This is a well-developed, well-nourished female, in no acute distress. HEENT: Normocephalic, atraumatic. Pupils are equal and reactive to light. NECK: Supple. CARDIOVASCULAR: Regular rate and rhythm. LUNGS: Clear. ABDOMEN: Obese and nontender. Bowel sounds are positive. EXTREMITIES: She has 1+ bilateral lower extremity edema. SKIN: No rash. HEMATOLOGICAL: No petechiae or purpura. NEUROLOGICAL: Nonfocal. PSYCH: She is alert and oriented and appropriate. PERTINENT LABS AND X-RAYS: Current WBCs are 4.7, hemoglobin 7.7, hematocrit 23.9, MCV is 69, platelet count is 164,000. She has 69% neutrophils, 20% lymphocytes. Sodium 142, potassium 3.9, chloride 114, CO2 is 23, BUN is 32, creatinine 1.05, and calcium 9.1. Iron 15, TIBC is 451, iron sat 3, ferritin 13. Bilirubin 1.0, AST is 27, ALT is 24, and alkaline phosphatase is 60. BNP is 748. Serum total protein is 6.3, albumin 3.7, and globulin 2.6. ASSESSMENT: Severe symptomatic anemia, multifactorial. DISCUSSION: The patient's iron deficiency anemia is likely secondary to poor absorption, immunosuppression with Plaquenil and chronic blood loss secondary to anticoagulation. She is going to have a capsule endoscopy in the outpatient setting. She clearly needs IV iron. She will have a dose today and tomorrow and we will follow up her labs in the clinic on April 11. She may need another dose of IV iron at that time. This was discussed in detail with the patient, who agrees to proceed. Thank you for the consult. Job ID: [id number]
[2019-03-31] MEDS: Iron, Sodium Ferric Gluconate 250 MG in Sodium Chloride 0.9% 250 ML 250 ML IVPB SCH (12:49)
--- NOTE | 2019-03-31 14:40 | PDOC.HOSPP ---
- Subjective Encounter Date: 03/31/19 Encounter Time: 11:00 Subjective: Ms. Barth was seen today in follow-up of severe anemia. She notes some" wheezing" today. She does not have any new complaints. - Objective Vital Signs & Weight: Vital Signs (12 hours) Temp Pulse Resp BP BP Pulse Ox 03/31/19 13:21 72 16 99 03/31/19 12:00 98.3 F 76 18 151/64 H 94 L 03/31/19 08:00 97.6 F 67 12 143/63 H 03/31/19 06:34 66 16 93 L 03/31/19 04:00 99 F 65 20 150/67 H 93 L Weight Admit Weight 254 lb 11.2 oz Weight 250 lb I&O: 03/30/19 03/31/19 04/01/19 06:59 06:59 06:59 Intake Total 3875 1600 Output Total 1100 975 Balance 2775 625 Result Diagrams: 03/31/19 05:18 03/29/19 04:47 Additional Labs: Accuchecks 03/31/19 03/31/19 03/30/19 11:03 05:25 20:11 POC Glucose 114 H 117 H 127 H 03/30/19 03/29/19 17:52 05:11 POC Glucose 125 H 84 Hospitalist ROS - Medication Medications: Active Medications Generic Name Dose Route Start Last Admin Trade Name Freq PRN Reason Stop Dose Admin Albuterol/Ipratropium 3 ml 03/29/19 01:00 03/31/19 13:21 Duoneb NEB 3 ml [id number] TAINA Administration Allopurinol 100 mg 03/29/19 09:00 03/31/19 09:20 Zyloprim PO 100 mg DAILY TAINA Administration Atenolol 75 mg 03/29/19 21:00 03/30/19 21:27 Tenormin PO 75 mg HS TAINA Administration Coenzyme Q10 200 mg 03/29/19 09:00 03/31/19 09:21 Coenzyme Q10 PO 200 mg DAILY TAINA Administration Cyclosporine 0 ml 03/29/19 09:00 03/31/19 09:32 Restasis EA EYE 1 ml BID TAINA Administration Famotidine 20 mg 03/28/19 21:00 03/31/19 09:21 Pepcid PO 20 mg BID TAINA Administration Hydroxychloroquine Sulfate 150 mg 03/31/19 09:00 03/31/19 09:21 Plaquenil PO 150 mg BID TAINA Administration Ferric Sodium Gluconate 270 mls @ 129.808 mls/hr 03/31/19 14:00 03/31/19 12: 49 Complex 250 mg/ Sodium IVPB 04/01/19 16:05 270 mls Chloride Q24HR TAINA Administration Levothyroxine Sodium 25 mcg 03/29/19 06:00 03/31/19 05:34 Synthroid PO 25 mcg 0600 TAINA Administration Losartan Potassium 50 mg 03/29/19 09:00 03/31/19 09:20 Cozaar PO 50 mg DAILY TAINA Administration Rosuvastatin Calcium 20 mg 03/29/19 09:00 03/31/19 09:21 Crestor PO 20 mg DAILY TAINA Administration - Exam Eye: PERRL Heart: RRR, no murmur, no gallops, no rubs, normal peripheral pulses Respiratory: no rales, no ronchi, normal chest expansion, wheezes Gastrointestinal: soft, non-tender, non-distended, normal bowel sounds, no palpable masses, no hepatomegaly, no splenomegaly Extremities: no cyanosis, no clubbing, 1+ LE edema Psychiatric: normal affect, normal behavior, A&O x 3 Hosp A/P (1) Acute respiratory failure Code(s): J96.00 - ACUTE RESPIRATORY FAILURE, UNSP W HYPOXIA OR HYPERCAPNIA Status: Acute (2) Symptomatic anemia Code(s): D64.9 - ANEMIA, UNSPECIFIED Status: Acute (3) History of - pulmonary embolus Code(s): Z86.711 - PERSONAL HISTORY OF PULMONARY EMBOLISM Status: Inactive (4) Hypothyroidism Code(s): E03.9 - HYPOTHYROIDISM, UNSPECIFIED Status: Chronic (5) Hypertension Code(s): I10 - ESSENTIAL (PRIMARY) HYPERTENSION Status: Acute - Plan * Acute respiratory failure- likely from severe anemia * She may be a bit volume overloaded today- will give a dose of Lasix IV and re- start her home dose p.o. tomorrow * Continue to hold Eliquis * Hematology input appreciated- plan is for IV iron today and tomorrow * HTN- blood pressure is in an acceptable range- continue Olmesartan and Atenolol
[2019-03-31] MEDS ORDERED: Furosemide 20 MG/2 ML VIAL SLOW IVP SCH (14:45)
[2019-03-31] MEDS: Ferrous Sulfate 325 MG TAB PO SCH (17:05)
--- NOTE | 2019-03-31 18:03 | PRG ---
DATE OF SERVICE: 03/31/2019 SUBJECTIVE: The patient is without complaint. She has no overt bleeding such as melena, hematochezia, or rectal bleeding. She is eating fine. OBJECTIVE: VITAL SIGNS: Temperature is 98.3, blood pressure 151/64, pulse is 76. GENERAL: She is alert, no distress. CV: Shows normal S1 and S2. Regular rate and rhythm. CHEST: Shows breath sounds. ABDOMEN: Soft and nontender. Good bowel sounds. EXTREMITIES: Shows no edema. ASSESSMENT: 1. Severe iron deficiency anemia, negative esophagogastroduodenoscopy and colonoscopy yesterday. Etiology is likely multifactorial. Thus far, no evidence of gastrointestinal bleeding with negative endoscopies and heme-negative stool. 2. Symptomatic anemia, responded well with transfusion. 3. History of pulmonary embolism on chronic anticoagulation. 4. Hypertension. RECOMMENDATION: 1. No new GI recommendation. The patient is stable to be discharged from GI standpoint after IV transfusion. 2. We will set up outpatient small bowel capsule study. 3. Since there is no evidence of GI bleeding, the patient's Eliquis can be restarted from GI standpoint. Job ID: [id number]
[2019-03-31] MEDS: Atenolol 50 MG TAB PO SCH (20:23)
[2019-04-01] MEDS: Levothyroxine Sodium 25 MCG TAB PO SCH (05:40)
[2019-04-01] MEDS: cycloSPORINE 0.05% Ophthalmic Droperette EA EYE SCH ×2 (08:40→21:39)
[2019-04-01] MEDS: Ferrous Sulfate 325 MG TAB PO SCH ×2 (08:41→17:15)
[2019-04-01] MEDS: Famotidine 20 MG TAB PO SCH ×2 (08:41→21:39)
[2019-04-01] MEDS: Losartan 25 MG TAB PO SCH (08:41)
[2019-04-01] MEDS: Ubidecarenone 50 MG CAP PO SCH (08:41)
[2019-04-01] MEDS: Rosuvastatin 20 MG TAB PO SCH (08:42)
[2019-04-01] MEDS: Allopurinol 100 MG TAB PO SCH (08:42)
[2019-04-01] MEDS: Furosemide 20 MG TAB PO SCH (08:42)
[2019-04-01] MEDS: Hydroxychloroquine Sulfate 200 MG TAB PO SCH ×2 (08:42→21:40)
--- NOTE | 2019-04-01 10:50 | PDOC.HOSPP ---
- Subjective Encounter Date: 04/01/19 Encounter Time: 10:49 Subjective: Ms. Barth was seen in follow up of severe anemia. She does not have any new complaints other than feeling very weak. - Objective Vital Signs & Weight: Vital Signs (12 hours) Temp Pulse Resp BP Pulse Ox 04/01/19 07:47 98.1 F 70 20 159/69 H 96 04/01/19 07:11 72 16 98 04/01/19 03:43 98.2 F 70 18 163/70 H 92 L 04/01/19 00:34 70 16 99 Weight Admit Weight 254 lb 11.2 oz Weight 251 lb 11.2 oz I&O: 03/31/19 04/01/19 04/02/19 06:59 06:59 06:59 Intake Total 1600 1240 Output Total 975 Balance 625 1240 Result Diagrams: 03/31/19 05:18 03/29/19 04:47 Additional Labs: Accuchecks 04/01/19 03/31/19 03/31/19 05:05 20:34 16:26 POC Glucose 105 108 137 H 03/31/19 03/31/19 11:03 05:25 POC Glucose 114 H 117 H Hospitalist ROS - Medication Medications: Active Medications Generic Name Dose Route Start Last Admin Trade Name Freq PRN Reason Stop Dose Admin Albuterol/Ipratropium 3 ml 03/29/19 01:00 04/01/19 07:11 Duoneb NEB 3 ml [id number] TAINA Administration Allopurinol 100 mg 03/29/19 09:00 04/01/19 08:42 Zyloprim PO 100 mg DAILY TAINA Administration Atenolol 75 mg 03/29/19 21:00 03/31/19 20:23 Tenormin PO 75 mg HS TAINA Administration Coenzyme Q10 200 mg 03/29/19 09:00 04/01/19 08:41 Coenzyme Q10 PO 200 mg DAILY TAINA Administration Cyclosporine 0 ml 03/29/19 09:00 04/01/19 08:40 Restasis EA EYE 0.4 ml BID TAINA Administration Famotidine 20 mg 03/28/19 21:00 04/01/19 08:41 Pepcid PO 20 mg BID TAINA Administration Ferrous Sulfate 325 mg 03/31/19 17:00 04/01/19 08:41 Feosol PO 325 mg BID-WM TAINA Administration Furosemide 20 mg 04/01/19 09:00 04/01/19 08:42 Lasix PO 20 mg DAILY TAINA Administration Hydroxychloroquine Sulfate 150 mg 03/31/19 09:00 04/01/19 08:42 Plaquenil PO 150 mg BID TAINA Administration Ferric Sodium Gluconate 270 mls @ 129.808 mls/hr 03/31/19 14:00 03/31/19 12: 49 Complex 250 mg/ Sodium IVPB 04/01/19 16:05 270 mls Chloride Q24HR TAINA Administration Levothyroxine Sodium 25 mcg 03/29/19 06:00 04/01/19 05:40 Synthroid PO 25 mcg 0600 TAINA Administration Losartan Potassium 50 mg 03/29/19 09:00 04/01/19 08:41 Cozaar PO 50 mg DAILY TAINA Administration Rosuvastatin Calcium 20 mg 03/29/19 09:00 04/01/19 08:42 Crestor PO 20 mg DAILY TAINA Administration - Exam Eye: PERRL Heart: RRR, no murmur, no gallops, no rubs, normal peripheral pulses Respiratory: CTAB, no wheezes, no rales, no ronchi, normal chest expansion, no tachypnea, normal percussion Gastrointestinal: soft, non-tender, non-distended, normal bowel sounds, no palpable masses, no hepatomegaly, no splenomegaly Extremities: no cyanosis, no clubbing, no edema Hosp A/P (1) Acute respiratory failure Code(s): J96.00 - ACUTE RESPIRATORY FAILURE, UNSP W HYPOXIA OR HYPERCAPNIA Status: Acute (2) Symptomatic anemia Code(s): D64.9 - ANEMIA, UNSPECIFIED Status: Acute (3) History of - pulmonary embolus Code(s): Z86.711 - PERSONAL HISTORY OF PULMONARY EMBOLISM Status: Inactive (4) Hypothyroidism Code(s): E03.9 - HYPOTHYROIDISM, UNSPECIFIED Status: Chronic (5) Hypertension Code(s): I10 - ESSENTIAL (PRIMARY) HYPERTENSION Status: Acute - Plan * Acute respiratory failure- likely from severe anemia * PE- she has been cleared to re-start Eliquis * She will receive her second dose of IV iron * HTN- blood pressure is in an acceptable range- continue Olmesartan and Atenolol * Stable for discharge later today
[2019-04-01] MEDS: Iron, Sodium Ferric Gluconate 250 MG in Sodium Chloride 0.9% 250 ML 250 ML IVPB SCH (14:29)
[2019-04-01 16:29] VITALS: BMI 43.2
[2019-04-01] MEDS: Atenolol 50 MG TAB PO SCH (21:37)
[2019-04-01] MEDS: Apixaban 2.5 MG TAB PO SCH (21:39)
[2019-04-02] MEDS: Levothyroxine Sodium 25 MCG TAB PO SCH (05:15)
[2019-04-02 05:40] LABS: Hemoglobin 7.9 g/dL (12.0-16.0); Platelet Count 143 thou/uL (130-400)
[2019-04-02] MEDS ORDERED: Aspirin Chewable 81 MG TAB PO SCH (09:00)
[2019-04-02] MEDS: Ferrous Sulfate 325 MG TAB PO SCH ×2 (09:36→17:09)
[2019-04-02] MEDS: Famotidine 20 MG TAB PO SCH (09:36)
[2019-04-02] MEDS: Allopurinol 100 MG TAB PO SCH (09:36)
[2019-04-02] MEDS: Apixaban 2.5 MG TAB PO SCH (09:36)
[2019-04-02] MEDS: Losartan 25 MG TAB PO SCH (09:37)
[2019-04-02] MEDS: Hydroxychloroquine Sulfate 200 MG TAB PO SCH (09:37)
[2019-04-02] MEDS: Ubidecarenone 50 MG CAP PO SCH (09:37)
[2019-04-02] MEDS: Furosemide 20 MG TAB PO SCH (09:37)
[2019-04-02] MEDS: Rosuvastatin 20 MG TAB PO SCH (09:37)
[2019-04-02] MEDS: cycloSPORINE 0.05% Ophthalmic Droperette EA EYE SCH (10:40)
[2019-04-02 11:16] LABS: Anion Gap 14 mmol/L (10-20); BUN (Urea Nitrogen) 26 mg/dL (9.8-20.1); Calc. Creatinine Clearance 82 mL/min (70-130); Carbon Dioxide 24 mmol/L (23-31); Chloride 110 mmol/L (98-107); Estimated GFR-MDRD 69; Glucose 61 mg/dL (83-110); Potassium 4.4 mmol/L (3.5-5.1); Sodium 144 mmol/L (136-145)
[2019-04-02 15:42] VITALS: BP 159/67; TEMP 98.5
[2019-04-02] MEDS ORDERED: Apixaban 2.5 MG TAB PO SCH (21:00)
--- NOTE | 2019-04-04 12:05 | DIS ---
DATE OF ADMISSION: 03/28/2019 DATE OF DISCHARGE: 04/02/2019 DISCHARGE DIAGNOSES: 1. Shortness of breath. 2. Acute on chronic iron-deficiency anemia. 3. Pulmonary embolism. 4. Hypothyroidism. 5. Hypertension. HOSPITAL COURSE: The patient is an 84-year-old female who initially presented to the hospital on 03/29 with complaints of shortness of breath. At that time, she was found to have hemoglobin of 5.8. She underwent transfusions of total of 3 units throughout the whole hospital stay. She also was seen by GI, and iron studies were ordered. She underwent an EGD and colonoscopy which did not show any acute overt bleeding. She was found to have significant low iron-deficiency anemia and she has been replaced with IV iron. She also was seen by Hematology, who recommended followup as an outpatient. The patient did not have an echocardiogram during this hospital course. I have asked her to follow up with her primary and also maybe get an echocardiogram as an outpatient. She did have an elevated BNP of 740. HOME MEDICATIONS: 1. Hydroxychloroquine mg b.i.d. 2. Lasix 20 mg daily. 3. Colchicine 0.6 p.o. b.i.d. p.r.n. 4. Atenolol 75 mg at bedtime. 5. Benicar 20 mg daily. 6. Synthroid 25 mcg daily. 7. Allopurinol 1 tablet p.o. daily. 8. Crestor 20 mg daily. 9. Aspirin 81 mg daily. 10. Colace 100 mg daily. 11. Eliquis, she was initially on 2.5 b.i.d., however, given her great renal function, I have opted up to 5 mg b.i.d. PHYSICAL EXAMINATION: VITAL SIGNS: Temperature 98.5, pulse 63, room air, and blood pressure 159/67. GENERAL: She is awake, alert, and oriented x3. Does not appear in distress. CV: S1 and S2 present. No murmurs, rubs, or gallops. ABDOMEN: Soft and nontender. Bowel sounds are present x2. EXTREMITIES: No edema. She has been walked for 6 minutes. Her oxygen did not drop less than 92%. I will discharge her. She will follow up with her primary care doctor. Job ID: [id number]
== END 2019-04-02 19:22 | disposition home or self-care (01) | DRG 811 ==
LOC: ERS 15:53 → 2NO 21:14
PROVIDERS: ADMIT Hospitalist; ATTEND Hospitalist
PROC: 30233N1 Transfusion of Nonautologous Red Blood Cells into Peripheral Vein, Percutaneous Approach (ICD-10-PCS; principal; 2019-03-28)
PROC: 0DJ08ZZ Inspection of Upper Intestinal Tract, Via Natural or Artificial Opening Endoscopic (ICD-10-PCS; 2019-03-30)
PROC: 0DJD8ZZ Inspection of Lower Intestinal Tract, Via Natural or Artificial Opening Endoscopic (ICD-10-PCS; 2019-03-30)
DX: D50.9 Iron deficiency anemia, unspecified (principal); J96.00 Acute respiratory failure, unspecified whether with hypoxia or hypercapnia; C85.90 Non-Hodgkin lymphoma, unspecified, unspecified site; E03.9 Hypothyroidism, unspecified; I87.2 Venous insufficiency (chronic) (peripheral); I25.10 Atherosclerotic heart disease of native coronary artery without angina pectoris; Z96.653 Presence of artificial knee joint, bilateral; I12.9 Hypertensive chronic kidney disease with stage 1 through stage 4 chronic kidney disease, or unspecified chronic kidney disease; E11.22 Type 2 diabetes mellitus with diabetic chronic kidney disease; N18.9 Chronic kidney disease, unspecified; K21.9 Gastro-esophageal reflux disease without esophagitis; M06.9 Rheumatoid arthritis, unspecified; Z96.693 Finger-joint replacement, bilateral; E78.00 Pure hypercholesterolemia, unspecified; Z86.718 Personal history of other venous thrombosis and embolism; Z79.01 Long term (current) use of anticoagulants; Z86.73 Personal history of transient ischemic attack (TIA), and cerebral infarction without residual deficits; Z86.711 Personal history of pulmonary embolism
CPT/HCPCS: 36415; 36416; 36430; 71045; 80048; 80053; 82274; 82728; 83540; 83550; 83880; 84443; 84484; 85014; 85018; 85025; 85049; 85060; 86850; 86900; 86901; 93005; 94640; C9113; J1940; J2916; J7050; J7620; P9016

== ENCOUNTER 2019-04-11 11:38 | Outpatient (CLI) | payer MEDICARE ==
--- NOTE | 2019-04-11 18:10 | PRG ---
DATE OF SERVICE: HISTORY: Ms. Eduar Barth is a very pleasant 84-year-old, who presents to the [facility] for evaluation of an ulceration of the left lower leg in the region of the medial malleolus. The patient also has an ulceration over the dorsum of the left foot. In addition, the patient has an ulceration over the left posterior calf. The patient has been prescribed compression garments in the past. The patient received dressing changes of the 3M Coban 2 Layer Compression System 2 times per week with the assistance of Home Health. Subsequently, the patient received dressing changes of Aquacel for right and left lower leg wounds. More recently, the patient received dressing changes of Xeroform gauze, ABDs, Webril, and the 3M Coban 2 Layer Compression System on a weekly basis in the wound center. Since the patient's last visit, Ms. Barth has been receiving dressing changes of Xeroform gauze followed by an ABD and Kerlix for her left medial ankle ulceration and the ulceration over the dorsum of the left foot 3 times per week after cleansing and irrigation with the assistance of Home Health. For the ulceration of the left posterior calf, the patient has been receiving dressing changes of Xeroform followed by Mepilex border also 3 times per week after cleansing and irrigation with the assistance of Home Health. The patient has been receiving the preceding dressing changes in conjunction with the use of wraparound compression. The patient states she continues to utilize wraparound compression for her right foot and lower leg. In addition, the patient states that she is utilizing her pneumatic pump consistently. At the time of dressing changes, the patient has been receiving the application of a topical steroid for areas of stasis dermatitis. PHYSICAL EXAMINATION: VITAL SIGNS: Temperature 98.1, pulse 71, respirations 21, and blood pressure 192/75. EXTREMITIES: The ulceration of the left lower leg in the region of the medial malleolus measures approximately 5.0 x 3.5 cm. The ulceration over the left posterior calf is present, which measures approximately 0.6 x 0.7 cm. The dimensions of the wound at the time of the patient's last visit were approximately 0.7 x 0.5 cm. No purulent drainage is associated with the wound. Granulation tissue is present within the wound margins. No erythema of the skin surrounding the wound is present. No maceration of the skin of the periwound was noted. Edema of the left foot and lower leg is present on exam today. The ulceration over the dorsum of the left foot measures approximately 4.0 x 6.0 cm. All wounds appeared to be healing without complications or any signs of infection. ASSESSMENT AND PLAN: 1. Chronic venous hypertension with ulcers and inflammation. For the left posterior calf ulceration, dressing changes of Xeroform followed by Mepilex border will be continued 3 times per week after cleansing and irrigation with the assistance of Home Health. For the remaining wounds, dressing changes of Xeroform gauze, followed by an ABD and Kerlix are to be performed 3 times per week after cleansing and irrigation with the assistance of Home Health. The patient is to continue to utilize wraparound compression in conjunction with the preceding dressing changes. Wraparound compression for the right foot and lower leg will also be continued. Synalar ointment 0.025% will be continued to the areas of stasis dermatitis of the left foot and lower leg. I will see Ms. Barth again in 2 weeks. 2. Lymphedema tarda. The patient has been reminded to continue to utilize her lymphedema pump for treatment of right lower extremity lymphedema. The patient has been asked to begin utilizing her lymphedema pump for left lower extremity lymphedema. The patient has been told that she may utilize the pneumatic pump over the dressings of Xeroform gauze followed by an ABD and Kerlix. The patient understands that she is to utilize a lymphedema pump without concurrent use of the wraparound compression or a compression garment. 3. Degenerative joint disease. The patient previously stated that she has received a seat lift chair to improve her mobility, allowing her to stand and sit with less difficulty. 4. History of pulmonary embolism. 5. Anemia. 6. Hypothyroidism. 7. Coronary artery disease. 8. Hypertension. 9. Transient ischemic attack in 1994. 10. Gastroesophageal reflux disease. 11. History of right lower extremity deep venous thrombosis x2. 12. Mitral regurgitation. Job ID: [id number]
== END 2019-04-11 11:39 | disposition home or self-care (01) ==
LOC: WCC 11:38
PROVIDERS: ATTEND Family Medicine
DX: I87.332 Chronic venous hypertension (idiopathic) with ulcer and inflammation of left lower extremity (principal); L97.829 Non-pressure chronic ulcer of other part of left lower leg with unspecified severity; I89.0 Lymphedema, not elsewhere classified; M19.90 Unspecified osteoarthritis, unspecified site; D64.9 Anemia, unspecified; E03.9 Hypothyroidism, unspecified; I25.10 Atherosclerotic heart disease of native coronary artery without angina pectoris; I10 Essential (primary) hypertension; K21.9 Gastro-esophageal reflux disease without esophagitis; I34.0 Nonrheumatic mitral (valve) insufficiency; Z86.718 Personal history of other venous thrombosis and embolism; Z86.73 Personal history of transient ischemic attack (TIA), and cerebral infarction without residual deficits; Z86.711 Personal history of pulmonary embolism
CPT/HCPCS: 36415; 82728

== ENCOUNTER 2019-04-25 13:47 | Outpatient (CLI) | payer MEDICARE ==
--- NOTE | 2019-04-25 11:48 | PRG ---
DATE OF SERVICE: 04/25/2019 HISTORY: Ms. Eduar Barth is a very pleasant 84-year-old who presents to the Wound Center for evaluation of an ulceration of the left lower leg in the region of the medial malleolus. The patient also has an ulceration over the dorsum of the left foot. In addition, the patient has an ulceration over the left posterior calf. The patient has been prescribed compression garments in the past. The patient received dressing changes of the 3M Coban 2 Layer Compression System 2 times per week with the assistance of Home Health. Subsequently, the patient received dressing changes of Aquacel for right and left lower leg wounds. More recently, the patient received dressing changes of Xeroform gauze, ABDs, Webril, and the 3M Coban 2 Layer Compression System on a weekly basis in the wound center. Since the patient's last visit, Ms. Barth has been receiving dressing changes of Xeroform gauze for her left medial ankle ulceration and the ulceration over the dorsum of the left foot 3 times per week after cleansing and irrigation with the assistance of Home Health. For the ulceration of the left posterior calf, the patient has been receiving dressing changes of Xeroform followed by Mepilex border also 3 times per week after cleansing and irrigation with the assistance of Home Health. The patient has been receiving the preceding dressing changes in conjunction with the use of wraparound compression. The patient states that she continues to utilize wraparound compression for her right foot and lower leg. In addition, the patient states that she is utilizing her pneumatic pump consistently. At the time of dressing changes, the patient has been receiving the application of a topical steroid for areas of stasis dermatitis. PHYSICAL EXAMINATION: VITAL SIGNS: Temperature 98.0, pulse 67, respirations 18, blood pressure 138/61. EXTREMITIES: The ulceration of the left lower leg in the region of the medial malleolus has healed. The ulceration over the left posterior calf has also healed. The ulceration over the dorsum of the left foot also has healed. Only stasis dermatitis is present over the dorsum of the left foot and over the left medial ankle. ASSESSMENT AND PLAN: 1. Chronic venous hypertension with ulcers and inflammation. As stated above, the ulcerations have healed. For the newly healed wounds, dressing changes of Xeroform gauze will be continued 3 times per week after cleansing and irrigation with the assistance of Home Health. The patient is to continue to utilize wraparound compression in conjunction with the preceding dressing changes. Wraparound compression for the right foot and lower leg will also be continued. Synalar ointment 0.025% will be continued to the areas of stasis dermatitis of the left foot and lower leg. I will see Ms. Barth again in 3 weeks. The patient has been given another prescription for compression garments, knee-high, open or closed toe to yield a compression of 20 to 30 mmHg. 2. Lymphedema tarda. The patient has been reminded to continue to utilize her lymphedema pump for treatment of right and left lower extremity lymphedema. The patient was previously told that she may utilize the pneumatic pump over the dressings of Xeroform gauze. The patient was previously instructed that she is to utilize her lymphedema pump without concurrent use of wraparound compression or a compression garment. 3. Degenerative joint disease. The patient has received a seat lift chair to improve her mobility, allowing her to stand and sit with less difficulty. 4. History of pulmonary embolism. 5. Anemia. 6. Hypothyroidism. 7. Coronary artery disease. 8. Hypertension. 9. Transient ischemic attack in 1994. 10. Gastroesophageal reflux disease. 11. History of right lower extremity deep venous thrombosis x2. 12. Mitral regurgitation. Job ID: [id number]
== END 2019-04-25 13:48 | disposition home or self-care (01) ==
LOC: WCC 13:47
PROVIDERS: ATTEND Family Medicine
DX: I87.332 Chronic venous hypertension (idiopathic) with ulcer and inflammation of left lower extremity (principal); L97.929 Non-pressure chronic ulcer of unspecified part of left lower leg with unspecified severity; I89.0 Lymphedema, not elsewhere classified; M19.90 Unspecified osteoarthritis, unspecified site; D64.9 Anemia, unspecified; E03.9 Hypothyroidism, unspecified; I25.10 Atherosclerotic heart disease of native coronary artery without angina pectoris; I10 Essential (primary) hypertension; K21.9 Gastro-esophageal reflux disease without esophagitis; G45.9 Transient cerebral ischemic attack, unspecified; I34.0 Nonrheumatic mitral (valve) insufficiency; Z86.718 Personal history of other venous thrombosis and embolism; Z86.711 Personal history of pulmonary embolism
CPT/HCPCS: 97602

== ENCOUNTER 2019-05-30 14:09 | Outpatient (CLI) | payer MEDICARE ==
--- NOTE | 2019-05-30 13:13 | PRG ---
DATE OF SERVICE: 05/30/2019 HISTORY: Ms. Eduar Barth is a very pleasant 84-year-old, who presents to the Wound Center for evaluation of chronic venous hypertension with ulcers and inflammation. Since the patient's last visit, Ms. Barth has been receiving dressing changes of Xeroform gauze 3 times per week after cleansing and irrigation for her newly healed wounds with the assistance of Home Health. The patient is also receiving the application of Synalar ointment 0.025% to the areas of stasis dermatitis of her left foot and lower leg. The patient states that she has been utilizing her pneumatic pump. She also states that she has wraparound compression and compression garments. She states that she utilizes either her wraparound compression or compression garment on a consistent basis. The patient states that she believes that the Xeroform gauze may be irritating her skin. PHYSICAL EXAMINATION: VITAL SIGNS: Pulse 66, respirations 21, and blood pressure 166/85. EXTREMITIES: Two areas of stasis dermatitis are present over the dorsum of the left foot and over the left medial ankle. No open wounds of the left foot or ankle are present. ASSESSMENT AND PLAN: 1. Chronic venous hypertension with ulcers and inflammation. As stated above, the ulcerations have healed completely. Dressing changes of Xeroform gauze will be discontinued. The patient has been instructed to cleanse her left foot and ankle with Dove soap, pat dry and apply the Synalar ointment 0.025% to the areas of stasis dermatitis of her left foot and left medial ankle. She has been told that she may utilize the Synalar ointment 0.025% up to b.i.d. The patient has been told that she may apply Synalar ointment 0.025% in the evening without cleansing first with Dove soap and water. The patient has been asked to continue to utilize her pneumatic pump consistently. She has also been told she should utilize either her compression garments or wraparound compression during the day. I will see Ms. Barth again in 1 week. 2. Lymphedema tarda. As stated above, the patient has been reminded to continue to utilize her lymphedema pump for treatment of right and left lower extremity lymphedema. The patient was previously instructed that she is to utilize her lymphedema pump without concurrent use of wraparound compression or a compression garment. 3. Degenerative joint disease. The patient has received a seat lift chair to improve her mobility, allowing her to stand and sit with less difficulty. 4. History of pulmonary embolism. 5. Anemia. 6. Hypothyroidism. 7. Coronary artery disease. 8. Hypertension. 9. Transient ischemic attack in 1994. 10. Gastroesophageal reflux disease. 11. History of right lower extremity deep venous thrombosis x2. 12. Mitral regurgitation. Job ID: [id number]
== END 2019-05-30 14:10 | disposition home or self-care (01) ==
LOC: WCC 14:09
PROVIDERS: ATTEND Family Medicine
DX: I89.0 Lymphedema, not elsewhere classified (principal); M19.90 Unspecified osteoarthritis, unspecified site; D64.9 Anemia, unspecified; E03.9 Hypothyroidism, unspecified; I25.10 Atherosclerotic heart disease of native coronary artery without angina pectoris; K21.9 Gastro-esophageal reflux disease without esophagitis; I34.0 Nonrheumatic mitral (valve) insufficiency; Z86.718 Personal history of other venous thrombosis and embolism; Z86.73 Personal history of transient ischemic attack (TIA), and cerebral infarction without residual deficits; Z86.711 Personal history of pulmonary embolism
CPT/HCPCS: 97602; A4218

== ENCOUNTER 2019-06-06 11:21 | Outpatient (CLI) | payer MEDICARE ==
--- NOTE | 2019-06-06 13:45 | PRG ---
DATE OF SERVICE: 06/06/2019 HISTORY: Ms. Eduar Barth is a very pleasant 84-year-old, who presents to the wound center for evaluation of chronic venous hypertension with ulcers and inflammation. The patient states that since her last visit, she has been applying Synalar ointment 0.025% to the areas of stasis dermatitis of her left foot and lower leg. The patient also states that she has been utilizing her pneumatic pump. She also states that she has wraparound compression. The patient has no other complaints today. She denies any fever or chills. PHYSICAL EXAMINATION: VITAL SIGNS: Temperature 98.3, pulse 67, Respirations 18, and blood pressure 174/76. EXTREMITIES: Only stasis dermatitis is present over the dorsum of the left foot and over the left medial ankle. No open wounds of the left foot or ankle are present. ASSESSMENT AND PLAN: 1. Chronic venous hypertension with ulcers and inflammation. As stated above, the ulcerations have healed completely and remain healed. The patient is to continue to apply Synalar ointment 0.025% to the areas of stasis dermatitis of the dorsum of her left foot and of her left medial ankle. She was previously told that she may utilize the Synalar ointment 0.025% up to b.i.d. The patient was also told that she may apply Synalar ointment 0.025% in the evening without cleansing first with Dove soap and water. She was told that the first application of Synalar ointment was to be after cleansing with Dove soap and patting dry. The patient has been reminded to utilize her pneumatic pump consistently. She has also been reminded to utilize wraparound compression during the day. Ms. Barth has been asked to schedule her next appointment in the wound center for 2 to 4 weeks from today. 2. Lymphedema tarda. As stated above, the patient has been reminded to continue to utilize her lymphedema pump for treatment of right and left lower extremity lymphedema. The patient was previously instructed that she is to utilize her lymphedema pump without concurrent use of wraparound compression or a compression garment. 3. Degenerative joint disease. The patient has received a seat lift chair to improve her mobility, allowing her to stand and sit with less difficulty. 4. History of pulmonary embolism. 5. Anemia. 6. Hypothyroidism. 7. Coronary artery disease. 8. Hypertension. 9. Transient ischemic attack in 1994. 10. Gastroesophageal reflux disease. 11. History of right lower extremity deep venous thrombosis x2. 12. Mitral regurgitation. Job ID: [id number]
[2019-06-06] MEDS ORDERED: Sodium Chloride 0.9% 15 ML NEB ONE (16:32)
== END 2019-06-06 11:22 | disposition home or self-care (01) ==
LOC: WCC 11:21
PROVIDERS: ATTEND Family Medicine
DX: I87.322 Chronic venous hypertension (idiopathic) with inflammation of left lower extremity (principal); I89.0 Lymphedema, not elsewhere classified; M19.90 Unspecified osteoarthritis, unspecified site; D64.9 Anemia, unspecified; E03.9 Hypothyroidism, unspecified; I25.10 Atherosclerotic heart disease of native coronary artery without angina pectoris; K21.9 Gastro-esophageal reflux disease without esophagitis; I10 Essential (primary) hypertension; I34.0 Nonrheumatic mitral (valve) insufficiency; Z86.73 Personal history of transient ischemic attack (TIA), and cerebral infarction without residual deficits; Z86.711 Personal history of pulmonary embolism; Z86.718 Personal history of other venous thrombosis and embolism
CPT/HCPCS: A4218

== ENCOUNTER 2019-06-23 11:25 | Outpatient (CLI) | payer MEDICARE ==
--- NOTE | 2019-06-23 14:20 | MMO ---
Bilateral MAMMO Bilat Screen [facility]. CLINICAL HISTORY: Patient is 84 years old and is seen for screening. The patient has no family history of breast cancer. The patient has no personal history of cancer. The patient has a history of left Excisional Biopsy in 1999 - benign. VIEWS: The views performed were: bilateral craniocaudal with tomosynthesis and bilateral mediolateral oblique with tomosynthesis. FILMS COMPARED: The present examination has been compared to prior imaging studies performed at [facility] on 03/27/2015, 03/28/2016, 04/03/2017 and 04/21/2018. This study has been interpreted with the assistance of computer-aided detection. MAMMOGRAM FINDINGS: There are scattered fibroglandular densities. There are stable benign appearing calcifications seen in both breasts. There are no suspicious masses, suspicious calcifications, or new areas of architectural distortion. IMPRESSION: THERE IS NO MAMMOGRAPHIC EVIDENCE OF MALIGNANCY. A ROUTINE FOLLOW-UP MAMMOGRAM IN 1 YEAR IS RECOMMENDED. THE RESULTS OF THIS EXAM WERE SENT TO THE PATIENT. ACR BI-RADS Category 2 - Benign finding MAMMOGRAPHY NOTE: 1. A negative mammogram report should not delay a biopsy if a dominant of clinically suspicious mass is present. 2. Approximately 10% to 15% of breast cancers are not detected by mammography. 3. Adenosis and dense breasts may obscure an underlying neoplasm. Reported by: TONI LUGO MD Electonically Signed: [id number]
== END 2019-06-23 11:26 | disposition home or self-care (01) ==
LOC: BICMAMMO 11:25
PROVIDERS: ATTEND Internal Medicine
DX: Z12.31 Encounter for screening mammogram for malignant neoplasm of breast (principal)
CPT/HCPCS: 77063; 77067

== ENCOUNTER 2020-04-17 14:02 | Outpatient (CLI) | payer MEDICARE ==
--- NOTE | 2020-04-17 16:05 | ULT ---
EXAM: US Thyroid STANDARD PROVIDED CLINICAL HISTORY: Multiple bilateral thyroid nodules. Follow-up evaluation. COMPARISON: 08/16/2018 FINDINGS: Right lobe: Right lobe of thyroid gland measures 6.6 cm x 3.3 cm x 3.4 cm. There are heterogeneous nodules again seen in the superior pole, midportion, and inferior pole right lobe of the thyroid gland. Heterogeneous nodule superior pole right lobe thyroid gland measures 1.8 cm x 1.3 cm x 1.6 cm with pr evious measurement of 1.8 cm x 1.4 cm x 1.7 cm. Nodule midportion right lobe of thyroid gland measures 1.9 cm x 1.8 cm x 1.8 cm. This nodule previous ly measured 2.1 cm x 1.8 cm x 1.8 cm. Nodule inferior inferior pole right lobe of thyroid gland not well visualized on today's exam but aquino s persist. There is a new heterogeneous nodule seen in the midportion right lobe of thyroid gland measuring 1.3 cm x 1.1 cm x 1 cm. Left lobe: There is large area of heterogeneity involving the majority of the left lobe of the thyroid gland. Th e more inferior portion of the left lobe of the thyroid gland is not well imaged. Margins are difficult to delineate for accurate measurement. There was a more discrete nodule seen in the inferio r pole left lobe of thyroid gland on prior exam, but there is now a larger area of heterogeneity which is difficult to accurately measure. Given the area of heterogeneity more diffusely, this could potentially represent enlargement of the previously seen nodule but discrete margins are difficult to delineate. Thyroid isthmus: Measurement of 0.8 cm in AP dimensions IMPRESSION: 1. Diffuse enlargement of the thyroid gland with multiple bilateral thyroid nodules. 2. Stable TI-RADS 4 nodules in the right lobe of thyroid gland, and ACR guidelines recommend fine-nee dle aspiration. Final aspiration has been performed of the larger nodule right lobe of thyroid gland with benign results. There is generalized heterogeneity now seen throughout the left lobe of th e thyroid gland. A discrete measurable nodule is difficult to delineate. Fine-needle aspiration of a dominant nodule inferior pole left lobe of thyroid gland was performed on 11/08/2018 with benign res ults. Six-month follow-up thyroid ultrasound is recommended for further evaluation to continue to document stability of the right thyroid nodules and to reevaluate the generalized heterogeneity in th e left lobe of the thyroid gland.
== END 2020-04-17 14:03 | disposition home or self-care (01) ==
LOC: BICULT 14:02
PROVIDERS: ATTEND Otolaryngology Plastic Surgery within the Head & Neck
DX: E04.2 Nontoxic multinodular goiter (principal)
CPT/HCPCS: 76536

== ENCOUNTER 2020-07-31 08:54 | Outpatient (CLI) | payer MEDICARE ==
--- NOTE | 2020-07-31 11:06 | BD ---
DEXA BONE MINERAL DENSITY STUDY: HISTORY: Osteoporosis screening. COMPARISON: None. FINDINGS: Lumbar Spine: BMD (g/cm2) L1 1.666 T-Score: 6.1 8.0 L2 1.869 T-Score: 7.6 9.8 L3 1.886 T-Score: 7.3 9.5 L4 1.755 T-Score: 6.3 8.6 L1-L4 1.786 T-Score: 6.7 8.9 Wrist: 1/3 0.765 T-Score: 1.2 4.7 Ultra distal 0.515 T-Score: 1.2 3.8 WHO classification: Normal. Impression: Normal bone mineral density. POS: HOME
--- NOTE | 2020-07-31 16:16 | MMO ---
Bilateral MAMMO Bilat Screen [facility]. CLINICAL HISTORY: Patient is 85 years old and is seen for screening. The patient has no family history of breast cancer. The patient has no personal history of cancer. The patient has a history of left Excisional Biopsy in 1999 - benign. VIEWS: The views performed were: bilateral craniocaudal with tomosynthesis and bilateral mediolateral oblique with tomosynthesis. FILMS COMPARED: The present examination has been compared to prior imaging studies performed at [facility] on 03/28/2016, 04/03/2017, 04/21/2018 and 06/23/2019. This study has been interpreted with the assistance of computer-aided detection. MAMMOGRAM FINDINGS: There are scattered fibroglandular densities. Benign calcifications are noted bilaterally. There are no suspicious masses, suspicious calcifications, or new areas of architectural distortion. IMPRESSION: THERE IS NO MAMMOGRAPHIC EVIDENCE OF MALIGNANCY. A ROUTINE FOLLOW-UP MAMMOGRAM IN 1 YEAR IS RECOMMENDED. THE RESULTS OF THIS EXAM WERE SENT TO THE PATIENT. ACR BI-RADS Category 2 - Benign finding MAMMOGRAPHY NOTE: 1. A negative mammogram report should not delay a biopsy if a dominant of clinically suspicious mass is present. 2. Approximately 10% to 15% of breast cancers are not detected by mammography. 3. Adenosis and dense breasts may obscure an underlying neoplasm. Reported by: DEREK LYN MD Electonically Signed: [id number]
== END 2020-07-31 08:55 | disposition home or self-care (01) ==
LOC: BICMAMMO 08:54
PROVIDERS: ATTEND Internal Medicine
DX: Z12.31 Encounter for screening mammogram for malignant neoplasm of breast (principal); M81.0 Age-related osteoporosis without current pathological fracture; Z91.89 Other specified personal risk factors, not elsewhere classified
CPT/HCPCS: 77063; 77067; 77080

== ENCOUNTER 2020-08-05 12:12 | Emergency (ER) | payer MEDICARE ==
--- NOTE | 2020-08-05 13:34 | ULT ---
Exam:Leftlower extremity venous ultrasound with Doppler HISTORY: Leftlower extremity swelling. History of DVT and cellulitis. Left leg pain. Left hip with pl acement May 2020. COMPARISON: None TECHNIQUE: Grayscale, color flow, Doppler imaging and spectral wave muscle performed left lower extre mity venous system FINDINGS: There is compressibility, presence of flow and augmentation in the common femoral vein, femoral vein and popliteal vein. There is flow in the posterior tibial vein. There is flow in the greater saphenous vein and profunda femoral vein IMPRESSION: No thrombus in the left lower extremity deep venous system.
[2020-08-05] MEDS ORDERED: Lidocaine 1% (PF) 30 ML VIAL ONE (15:51)
[2020-08-05] MEDS ORDERED: Lidocaine 1% PF 5 ML VIAL ONE (15:59)
[2020-08-05] MEDS ORDERED: Clindamycin 150 MG CAP ONE (16:25)
[2020-08-05] MEDS ORDERED: Acetaminophen 500 MG TAB ONE (16:26)
== END 2020-08-05 17:00 | disposition home or self-care (01) ==
LOC: ERS 12:12
DX: L03.116 Cellulitis of left lower limb (principal); I10 Essential (primary) hypertension; D64.9 Anemia, unspecified; E11.9 Type 2 diabetes mellitus without complications; E78.00 Pure hypercholesterolemia, unspecified; Z86.73 Personal history of transient ischemic attack (TIA), and cerebral infarction without residual deficits; Z87.891 Personal history of nicotine dependence; Z79.01 Long term (current) use of anticoagulants; Z79.82 Long term (current) use of aspirin; Z79.899 Other long term (current) drug therapy
CPT/HCPCS: 10060; J2001

== ENCOUNTER 2020-08-25 04:34 | Emergency (ER) | payer MEDICARE ==
[2020-08-25 06:27] LABS: #Eosinphils 0.2 thou/uL (0.0-0.7); #Monocytes 0.4 thou/uL (0.11-0.59); #Neutrophils 5.9 thou/uL (1.40-6.50); %Basophils 0.1 % (0.0-1.0); %Eosinophils 2.4 % (0.0-10.0); %Lymphocytes 12.7 % (21.0-51.0); %Monocytes 5.5 % (0.0-10.0); %Neutrophils 79.2 % (42.0-75.0); Mean Corpuscular HGB CONC 33.6 g/dL (32.0-36.0); Mean Corpuscular Hemoglobin 33.1 pg (27.0-31.0); Mean Corpuscular Volume 98.5 fL (78.0-98.0); Mean Platelet Volume 8.3 fL (7.4-10.4); Platelet Count 120 thou/uL (130-400); RBC Distribution Width 12.7 % (11.5-14.5); Red Blood Cell (RBC) Count 3.33 mill/uL (4.20-5.40); White Blood Cell (WBC) Count 7.5 thou/uL (4.8-10.8)
[2020-08-25 06:48] LABS: ALT (SGPT) 14 U/L (8-55); AST (SGOT) 18 U/L (5-34); Albumin 3.5 g/dL (3.4-4.8); Alkaline Phosphatase 74 U/L (40-110); Anion Gap 12 mmol/L (10-20); BUN (Urea Nitrogen) 36 mg/dL (9.8-20.1); Bilirubin, Total 0.6 mg/dL (0.2-1.2); Calc. Creatinine Clearance 0 mL/min (70-130); Carbon Dioxide 22 mmol/L (23-31); Chloride 113 mmol/L (98-107); Globulin 2.3 g/dL (2.4-3.5); Glucose 110 mg/dL (83-110); Potassium 4.2 mmol/L (3.5-5.1); Protein, Total 5.8 g/dL (5.8-8.1); Sodium 143 mmol/L (136-145)
== END 2020-08-25 07:46 | disposition home or self-care (01) ==
LOC: ERS 04:34
DX: L76.32 Postprocedural hematoma of skin and subcutaneous tissue following other procedure (principal); D64.9 Anemia, unspecified; I10 Essential (primary) hypertension; E11.9 Type 2 diabetes mellitus without complications; E78.00 Pure hypercholesterolemia, unspecified; Z86.73 Personal history of transient ischemic attack (TIA), and cerebral infarction without residual deficits; Z87.891 Personal history of nicotine dependence; Z79.4 Long term (current) use of insulin; Z79.82 Long term (current) use of aspirin
CPT/HCPCS: 36415; 76999; 80053; 85025; 85652; 86140; 87070; 87077; 87186; 87205

== ENCOUNTER 2021-03-30 15:18 | Emergency (ER) | payer MEDICARE | END 2021-03-30 17:51 | disposition home or self-care (01) | LOC: ERS 15:18 | DX: M84.474A Pathological fracture, right foot, initial encounter for fracture (principal); I10 Essential (primary) hypertension; E66.9 Obesity, unspecified; D64.9 Anemia, unspecified; E11.42 Type 2 diabetes mellitus with diabetic polyneuropathy; E78.00 Pure hypercholesterolemia, unspecified; Z87.891 Personal history of nicotine dependence; Z79.01 Long term (current) use of anticoagulants; Z79.82 Long term (current) use of aspirin; Z79.899 Other long term (current) drug therapy ==

== ENCOUNTER 2021-05-23 07:48 | Outpatient (CLI) | payer MEDICARE | END 2021-05-23 07:49 | disposition home or self-care (01) | LOC: BICULT 07:48 | PROVIDERS: ATTEND Otolaryngology Plastic Surgery within the Head & Neck | DX: E04.2 Nontoxic multinodular goiter (principal) | CPT/HCPCS: 76536 ==

== ENCOUNTER 2022-04-21 15:19 | Outpatient (CLI) | payer OTHER | END 2022-04-21 15:20 | disposition home or self-care (01) | LOC: BICULT 15:19 | PROVIDERS: ATTEND Internal Medicine | DX: N28.1 Cyst of kidney, acquired (principal) | CPT/HCPCS: 76770 ==

== ENCOUNTER 2022-06-11 14:14 | Outpatient (CLI) | payer MEDICARE | END 2022-06-11 14:15 | disposition home or self-care (01) | LOC: BICULT 14:14 | PROVIDERS: ATTEND Otolaryngology Plastic Surgery within the Head & Neck | DX: E04.9 Nontoxic goiter, unspecified (principal) | CPT/HCPCS: 76536 ==

== ENCOUNTER 2022-10-06 13:20 | Outpatient (CLI) | payer MEDICARE | END 2022-10-06 13:21 | disposition home or self-care (01) | LOC: BICMAMMO 13:20 | PROVIDERS: ATTEND Internal Medicine | DX: Z12.31 Encounter for screening mammogram for malignant neoplasm of breast (principal); R92.1 Mammographic calcification found on diagnostic imaging of breast; Z91.89 Other specified personal risk factors, not elsewhere classified; Z78.0 Asymptomatic menopausal state | CPT/HCPCS: 77063; 77067; 77080 ==

== ENCOUNTER 2023-07-13 09:04 | Outpatient (CLI) | payer MEDICARE | END 2023-07-13 09:05 | disposition home or self-care (01) | LOC: BICULT 09:04 | PROVIDERS: ATTEND Otolaryngology Plastic Surgery within the Head & Neck | DX: E04.9 Nontoxic goiter, unspecified (principal) | CPT/HCPCS: 76536 ==

== ENCOUNTER 2024-08-01 07:58 | Outpatient (CLI) | payer MEDICARE | END 2024-08-01 07:59 | disposition home or self-care (01) | LOC: ULT 07:58 | PROVIDERS: ATTEND Internal Medicine | DX: R79.89 Other specified abnormal findings of blood chemistry (principal); N28.1 Cyst of kidney, acquired | CPT/HCPCS: 76770 ==